=== PATIENT | female | born 1990 | race Caucasian/White ===

== ENCOUNTER 2016-11-19 18:40 | Emergency (ER) | payer OTHER ==
[~2016-11-19] VITALS: Ht 160 cm; Wt 43.7 kg
[~2016-11-19 18:40] MED LIST: ALBUAER2 INH; CALCTAB5 PO
[2016-11-19 18:44] VITALS: TEMP 36.7; Ht 160 cm; Wt 43.7 kg
[2016-11-19] MEDS ORDERED: SODIUM CHLORIDE 0.9% 1000ML 1,000 ML IV STA (20:51)
[2016-11-19] MEDS ORDERED: ONDANSETRON INJ 2 MG/ML 2 ML VIAL IV STA (20:51)
--- NOTE | 2016-11-19 20:59 | EMERGENCY ROOM VISIT NOTE ---
History Report prepared by Thanh: Renate Shelton Under the Supervision of: Dr. Gypsy Marrufo M.D. First contact with patient: 20:40 Chief Complaint: ABDOMINAL PAIN Stated Complaint: SEVERE NAUSEA, PAIN IN ABDOMEN Nursing Triage Summary: Severe nausea and abd pain that started new years day. History of Present Illness The patient is a 26 year old female who presents to the Emergency Room with complaints of constant abdominal pain for the past 3 days. She rates her pain as a 5/10 in severity. She has been experiencing nausea and vomiting. She states that she is unable to eat or drink due to her symptoms. The patient reports feeling lightheaded, like she was going to pass out. She denies diarrhea , chance of , and any sick contacts. Source of History: patient Onset: 3 days ago Position: abdomen Symptom Intensity: 5/10 Timing: constant Modifying Factors (Worsening): eating, drinking Associated Symptoms: + nausea, + vomiting, No diarrhea Review of Systems See HPI for pertinent positives & negatives. A total of 10 systems reviewed and were otherwise negative. Past Medical & Surgical Medical Problems: (1) Abdominal pain (2) Abdominal pain (3) Abdominal pain (4) Abdominal pain (5) Abdominal pain (6) Abdominal pain (7) Anemia (8) Asthma (9) Asthma exacerbation (10) Asthma exacerbation (11) Asthma exacerbation (12) Asthma exacerbation (13) Bronchitis (14) Bronchitis (15) Constipation (16) Constipation (17) Dehydration (18) Dental caries (19) Dyspnea (20) Dyspnea (21) Ear foreign body (22) Fever (23) Gastroenteritis (24) Gastroenteritis (25) Jaw pain (26) Left ear impacted cerumen (27) Leg pain, left (28) Medication reaction (29) Migraine (30) Migraine (31) Miscarriage (32) Nausea (33) Normal labor (34) Ovarian cyst (35) Pelvic pain (36) Pelvic pain (37) Pelvic pain in female (38) Pelvic pain in female (39) PID (pelvic inflammatory disease) (40) PID (pelvic inflammatory disease) (41) Removal of ovarian cyst (42) Right lower quadrant pain (43) Third trimester (44) URI (upper respiratory infection) (45) Vaginal delivery Surgical Problems: (1) History of laparoscopic appendectomy (2) Hx of appendectomy (3) Tonsillectomy Family History Diabetes mellitus Kidney stones Social History Smoking Status: Never Smoker Alcohol Use: occasionally Drug Use: none Marital Status: Housing Status: lives with family Occupation Status: employed Current/Historical Medications Scheduled Calcium (Caltrate), 600 MG PO DAILY Ferrous Sulfate (Iron), 325 MG PO DAILY Fish Oil (Calvin-3), 1 CAP PO DAILY Multivitamin (Multivitamin), 1 TAB PO DAILY Scheduled PRN Albuterol (Ventolin Hfa), 2 PUFFS INH Q4H PRN for SOB/Wheezing Allergies Coded Allergies: Harmon (Verified Allergy, Unknown, SWELLING, 11/19/16) POLLEN (Verified Allergy, Unknown, UNKNOWN, 11/19/16) Physical Exam Vital Signs Date Time Temp Pulse Resp B/P Pulse Ox O2 Delivery O2 Flow Rate FiO2 11/19/16 22:30 76 18 104/62 96 Room Air 11/19/16 21:32 68 11/19/16 20:37 65 18 104/62 100 Room Air 11/19/16 20:37 70 16 110/71 99 Room Air 11/19/16 18:44 36.7 79 17 97/65 99 Room Air Physical Exam Vital signs reviewed. General: Well-appearing 26 year old female, in no significant distress. HEENT: No scleral icterus, PERRLA, neck supple. Atraumatic. Cardiovascular: Regular rate and rhythm, no extra sounds. Pulmonary: Clear to auscultation bilaterally, normal work of breathing. Abdomen: Soft, mild diffuse abdominal tenderness, nondistended, positive bowel sounds. Musculoskeletal: Atraumatic, no peripheral edema. Neurologic: Patient awake alert and oriented x 3, full strength in all 4 extremities. Cranial nerves 2 through 12 grossly intact. Skin: Warm, dry, no rash Medical Decision & Procedures Laboratory Results 11/19/16 21:05 Red Blood Count 3.84, Mean Corpuscular Volume 81.8, Mean Corpuscular Hemoglobin 27.6, Mean Corpuscular Hemoglobin Concent 33.8, Mean Platelet Volume 10.8, Neutrophils (%) (Auto) 53.8, Lymphocytes (%) (Auto) 35.4, Monocytes (%) (Auto) 7.3, Eosinophils (%) (Auto) 2.6, Basophils (%) (Auto) 0.6, Neutrophils # (Auto) 1.84, Lymphocytes # (Auto) 1.21, Monocytes # (Auto) 0.25, Eosinophils # (Auto) 0.09, Basophils # (Auto) 0.02 11/19/16 21:05 Test 11/19/16 21:05 White Blood Count 3.42 K/uL (4.8-10.8) Red Blood Count 3.84 M/uL (4.2-5.4) Hemoglobin 10.6 g/dL (12.0-16.0) Hematocrit 31.4 % (37-47) Mean Corpuscular Volume 81.8 fL (80-100) Mean Corpuscular Hemoglobin 27.6 pg (25-34) Mean Corpuscular Hemoglobin Concent 33.8 g/dl (32-36) Platelet Count 138 K/uL (130-400) Mean Platelet Volume 10.8 fL (7.4-10.4) Neutrophils (%) (Auto) 53.8 % Lymphocytes (%) (Auto) 35.4 % Monocytes (%) (Auto) 7.3 % Eosinophils (%) (Auto) 2.6 % Basophils (%) (Auto) 0.6 % Neutrophils # (Auto) 1.84 K/uL (1.4-6.5) Lymphocytes # (Auto) 1.21 K/uL (1.2-3.4) Monocytes # (Auto) 0.25 K/uL (0.11-0.59) Eosinophils # (Auto) 0.09 K/uL (0-0.5) Basophils # (Auto) 0.02 K/uL (0-0.2) RDW Standard Deviation 37.0 fL (36.4-46.3) RDW Coefficient of Variation 12.5 % (11.5-14.5) Immature Granulocyte % (Auto) 0.3 % Immature Granulocyte # (Auto) 0.01 K/uL (0.00-0.02) Urine Color DK YELLOW Urine Appearance CLEAR (CLEAR) Urine pH 5.0 (4.5-7.5) Urine Specific [facility] [place] 1.035 (1.000-1.030) Urine Protein NEG (NEG) Urine Glucose (UA) NEG (NEG) Urine Ketones 1+ (NEG) Urine Occult Blood 1+ (NEG) Urine Nitrite NEG (NEG) Urine Bilirubin NEG (NEG) Urine Urobilinogen NEG (NEG) Urine Leukocyte Esterase NEG (NEG) Urine WBC (Auto) 1-5 /hpf (0-5) Urine RBC (Auto) 10-30 /hpf (0-4) Urine Hyaline Casts (Auto) 1-5 /lpf (0-5) Urine Epithelial Cells (Auto) 10-20 /lpf (0-5) Urine Bacteria (Auto) NEG (NEG) Anion Gap 9.0 mmol/L (3-11) Est Creatinine Clear Calc Drug Dose 106.0 ml/min Estimated GFR () 149.0 Estimated GFR (Non- 128.5 BUN/Creatinine Ratio 26.7 (10-20) Calcium Level 8.6 mg/dl (8.5-10.1) Magnesium Level 1.8 mg/dl (1.8-2.4) Total Bilirubin 0.2 mg/dl (0.2-1) Direct Bilirubin < 0.1 mg/dl (0-0.2) Aspartate Amino Transf (AST/SGOT) 19 U/L (15-37) Alanine Aminotransferase (ALT/SGPT) 15 U/L (12-78) Alkaline Phosphatase 37 U/L (45-117) Total Protein 6.2 gm/dl (6.4-8.2) Albumin 3.0 gm/dl (3.4-5.0) Human Chorionic Gonadotropin, Qual NEG (NEG) Laboratory results per my review. Medications Administered Medications (Trade) Dose Ordered Sig/Smith Route Start Time Stop Time Status Last Admin Dose Admin Ondansetron HCl 4 mg 4 mg NOW STAT IV 11/19/16 20:51 11/19/16 20:52 DC 11/19/16 21:22 4 MG Sodium Chloride (Nss 1000ml) 1,000 ml @ 999 mls/hr Q1H1M STAT IV 11/19/16 20:51 11/19/16 21:51 DC 11/19/16 21:21 999 MLS/HR Ondansetron HCl (ZOFRAN ODT 4MG Home Pack) 1 homepack UD ONCE PO 11/19/16 22:15 11/19/16 22:16 DC 11/19/16 22:15 1 HOMEPACK ED Course 2047: Past medical records reviewed. The patient was evaluated in room C9. A complete history and physical examination was performed. 2050: NSS 1000 ml @ 999 mls/hr IV, Zofran 4 mg IV 2214: Zofran 4 mg PO 1 homepack 2230: I reassessed the patient at this time. She is feeling better and resting comfortably. I discussed the results and treatment plan with the patient. I answered all pertaining questions that she had. She expressed understanding and verbalized agreement. The patient will be discharged home. Medical Decision Differential diagnosis: Etiologies such as appendicitis, diverticulitis, PUD, biliary pathology, UTI, pancreatitis, obstruction, mesenteric ischemia, aortic pathology, infections, inflammatory bowel disease, renal colic, as well as others were entertained. This pt was evaluated and appeared to be in no distress. IV access was obtained and lab work was drawn. PT was placed on the personnel monitor. VSS. She was hydrated with NSS, given zofran 4 mg IV. She had improvement in symptoms. UA is significant for microscopic blood c/w menses. Lab work is reassuring and pt was asked to f/u with PCP this week. She will return to the ED for worsening of symptoms or any medical concerns. Impression Primary Impression: Nausea Additional Impression: Diffuse abdominal pain Scribe Attestation The scribe's documentation has been prepared under my direction and personally reviewed by me in its entirety. I confirm that the note above accurately reflects all work, treatment, procedures, and medical decision making performed by me. Departure Information Dispostion Home / Self-Care Referrals Anant Valiente III, M.D. (PCP) Forms HOME CARE DOCUMENTATION FORM, IMPORTANT VISIT INFORMATION, My [facility] Additional Instructions Diagnosis: Nausea, abdominal pain Zofran 4 mg ODT every 6 hours as needed for nausea. Drink plenty of clear fluids. Advance her diet slowly as tolerated, bananas, rice, applesauce and toast. Follow-up with your physician this week for reevaluation. Return to the ER for worsening of symptoms or any medical concerns.
[2016-11-19 21:27] LABS: BASO % 0.6 %; BASO ABS # 0.02 K/uL (0-0.2); COMPLETE YES; EOS % 2.6 %; HEMATOCRIT 31.4 % (37-47); IG% 0.3 %; LYMPH % 35.4 %; LYMPH ABS # 1.21 K/uL (1.2-3.4); MEAN CELL VOLUME 81.8 fL (80-100); MEAN CORPUSCULAR HEMOGLOBIN 27.6 pg (25-34); MEAN CORPUSCULAR HGB CONC 33.8 g/dl (32-36); MEAN PLATELET VOLUME 10.8 fL (7.4-10.4); MONO % 7.3 %; NEUT % 53.8 %; PLATELET COUNT 138 K/uL (130-400); RED BLOOD COUNT 3.84 M/uL (4.2-5.4); WHITE BLOOD COUNT 3.42 K/uL (4.8-10.8)
[2016-11-19 21:41] LABS: URINE APPEARANCE CLEAR (CLEAR); URINE BILIRUBIN NEG (NEG); URINE COLOR DK YELLOW; URINE NITRITE NEG (NEG); URINE SPECIFIC GRAVITY 1.035 (1.000-1.030); UROBILINOGEN NEG (NEG); ZZUR CULT IF INDIC CLEAN CATCH NO
[2016-11-19 21:43] LABS: MANUAL MICROSCOPIC REQUIRED? NO; REVIEW REQ? NO
[2016-11-19 21:50] LABS: ALT/SGPT 15 U/L (12-78); BLOOD UREA NITROGEN 15 mg/dl (7-18); BUN/CREATININE RATIO 26.7 (10-20); CALCIUM 8.6 mg/dl (8.5-10.1); CARBON DIOXIDE 27 mmol/L (21-32); CHLORIDE 107 mmol/L (98-107); CREATININE 0.55 mg/dl (0.60-1.20); GLUCOSE 83 mg/dl (70-99); MAGNESIUM 1.8 mg/dl (1.8-2.4); POTASSIUM 3.4 mmol/L (3.5-5.1); SODIUM 143 mmol/L (136-145)
[2016-11-19 21:53] LABS: ALKALINE PHOSPHATASE 37 U/L (45-117); AST/SGOT 19 U/L (15-37)
[2016-11-19 21:56] LABS: PREG INTERNAL NEGATIVE QC NEG CLEAR BACKGROUND; PREG INTERNAL POSITIVE QC POS CONTROL LINE
[2016-11-19] MEDS ORDERED: ONDANSETRON HOME PACK 4MG OD TAB PO ONE (22:15)
[2016-11-19 22:30] VITALS: BP 104/62; PULSE 76; O2SAT 96
[2017-06-01] MEDS ORDERED: FERR1TAB23 PO (01:38)
[2017-06-01] MEDS ORDERED: MULT-506 PO (01:39)
[2017-06-01] MEDS ORDERED: VNTHFA/IN INH (13:58)
[2017-06-01] MEDS ORDERED: OMEG10007 PO (15:33)
== END 2016-11-19 22:55 | disposition home or self-care (01) ==
LOC: C.EDB 18:42 → C.EDC 22:55
DX: R10.9 Unspecified abdominal pain (principal); R11.0 Nausea; J45.909 Unspecified asthma, uncomplicated; Z86.19 Personal history of other infectious and parasitic diseases; N83.209 Unspecified ovarian cyst, unspecified side; D64.9 Anemia, unspecified; Z98.890 Other specified postprocedural states; Z79.899 Other long term (current) drug therapy; Z91.018 Allergy to other foods; Z83.3 Family history of diabetes mellitus; Z84.1 Family history of disorders of kidney and ureter

== ENCOUNTER 2016-11-26 03:03 | Emergency (ER) | payer OTHER ==
[~2016-11-26] VITALS: Ht 160 cm; Wt 44.5 kg
[2016-11-26 03:09] VITALS: TEMP 36.6; Ht 160 cm; Wt 44.5 kg
[2016-11-26] MEDS ORDERED: KETOROLAC TROMETHAMINE 30 MG/ML VIAL IV STA (03:26)
[2016-11-26] MEDS ORDERED: SODIUM CHLORIDE 0.9% 500ML 500 ML IV STA (03:26)
[2016-11-26] MEDS ORDERED: ONDANSETRON INJ 2 MG/ML 2 ML VIAL IV STA (03:26)
[2016-11-26 03:50] LABS: BASO % 0.5 %; BASO ABS # 0.03 K/uL (0-0.2); COMPLETE YES; EOS % 5.1 %; HEMATOCRIT 34.6 % (37-47); IG% 0.5 %; LYMPH % 43.8 %; LYMPH ABS # 2.91 K/uL (1.2-3.4); MEAN CELL VOLUME 82.4 fL (80-100); MEAN CORPUSCULAR HEMOGLOBIN 27.6 pg (25-34); MEAN CORPUSCULAR HGB CONC 33.5 g/dl (32-36); MEAN PLATELET VOLUME 10.7 fL (7.4-10.4); MONO % 5.1 %; PLATELET COUNT 223 K/uL (130-400); WHITE BLOOD COUNT 6.64 K/uL (4.8-10.8)
[2016-11-26 03:58] LABS: URINE APPEARANCE CLEAR (CLEAR); URINE BILIRUBIN NEG (NEG); URINE COLOR YELLOW; URINE NITRITE NEG (NEG); URINE PH 7.5 (4.5-7.5); URINE SPECIFIC GRAVITY 1.009 (1.000-1.030); UROBILINOGEN NEG (NEG); ZZUR CULT IF INDIC CLEAN CATCH NO
[2016-11-26 03:59] LABS: MANUAL MICROSCOPIC REQUIRED? NO; REVIEW REQ? NO
[2016-11-26 04:07] LABS: BUN/CREATININE RATIO 18.3 (10-20); CALCIUM 9.1 mg/dl (8.5-10.1); CREATININE 0.66 mg/dl (0.60-1.20); POTASSIUM 3.7 mmol/L (3.5-5.1)
[2016-11-26 04:13] LABS: PREG INTERNAL NEGATIVE QC NEG CLEAR BACKGROUND; PREG INTERNAL POSITIVE QC POS CONTROL LINE
--- NOTE | 2016-11-26 05:28 | EMERGENCY ROOM VISIT NOTE ---
History First contact with patient: 03:16 Chief Complaint: NAUSEA Stated Complaint: FAINT-LIKE,TIRED,WEAK,DROWSY,DRY LIPS,ABD PAIN,HERNÁNDEZ History of Present Illness The patient is a 26 year old female who presents to the Emergency Room with complaints of nausea feeling lightheaded and lower abdominal cramping for the past several hours. Patient is concerned she has her ovarian cyst again. She describes the pain as cramping, ranging in severity 4 out of 10. Nothing makes it better or worse. She just finished her menstrual cycle. Patient denies chest pain, dyspnea, fever, chills, vomiting, diarrhea, urinary symptoms. No syncope. Review of Systems See HPI for pertinent positives & negatives. A total of 10 systems reviewed and were otherwise negative. Past Medical/Surgical History Medical Problems: (1) Abdominal pain (2) Abdominal pain (3) Abdominal pain (4) Abdominal pain (5) Abdominal pain (6) Abdominal pain (7) Anemia (8) Asthma (9) Asthma exacerbation (10) Asthma exacerbation (11) Asthma exacerbation (12) Asthma exacerbation (13) Bronchitis (14) Bronchitis (15) Constipation (16) Constipation (17) Dehydration (18) Dental caries (19) Dyspnea (20) Dyspnea (21) Ear foreign body (22) Fever (23) Gastroenteritis (24) Gastroenteritis (25) Jaw pain (26) Left ear impacted cerumen (27) Leg pain, left (28) Medication reaction (29) Migraine (30) Migraine (31) Miscarriage (32) Nausea (33) Normal labor (34) Ovarian cyst (35) Pelvic pain (36) Pelvic pain (37) Pelvic pain in female (38) Pelvic pain in female (39) PID (pelvic inflammatory disease) (40) PID (pelvic inflammatory disease) (41) Removal of ovarian cyst (42) Right lower quadrant pain (43) Third trimester (44) URI (upper respiratory infection) (45) Vaginal delivery Surgical Problems: (1) History of laparoscopic appendectomy (2) Hx of appendectomy (3) Tonsillectomy Family History Diabetes mellitus Kidney stones Social History Smoking Status: Never Smoker Alcohol Use: occasionally Drug Use: none Marital Status: Housing Status: lives with family Occupation Status: employed Current/Historical Medications Scheduled Calcium (Caltrate), 600 MG PO DAILY Ferrous Sulfate (Iron), 325 MG PO DAILY Fish Oil (Leola-3), 1 CAP PO DAILY Multivitamin (Multivitamin), 1 TAB PO DAILY Scheduled PRN Albuterol (Ventolin Hfa), 2 PUFFS INH Q4H PRN for SOB/Wheezing Allergies Coded Allergies: Byron (Verified Allergy, Unknown, SWELLING, 11/26/16) POLLEN (Verified Allergy, Unknown, UNKNOWN, 11/26/16) Physical Exam Vital Signs Date Time Temp Pulse Resp B/P Pulse Ox O2 Delivery O2 Flow Rate FiO2 11/26/16 04:57 72 20 96/60 100 Room Air 11/26/16 03:09 36.6 72 20 101/74 100 Physical Exam VITALS: Vitals are noted on the nurse's note and reviewed by myself. Vital signs stable. GENERAL: White female ambulating without difficulties, in no acute distress, nondiaphoretic, well-developed well-nourished. SKIN: The skin was without rashes, erythema, edema, or bruising. There is no tenting of the skin. Capillary reflex less than 2 seconds. HEAD: Normocephalic atraumatic. EARS: External auditory canals clear, tympanic membranes pearly kowalski without erythema or effusion bilaterally. EYES: Pupils equal round and reactive to light and accommodation. Conjunctivae without injection, sclerae without icterus. Extraocular movements intact. NOSE: Patent, turbinates without inflammation or discharge. MOUTH: Mucous membranes moist. . Pharynx without erythema or exudate. Uvula midline. Airway patent. Tongue does not deviate. NECK: Supple without nuchal rigidity. No lymphadenopathy. No thyromegaly. Cervical spine is nontender. No JVD. HEART: Regular rate and rhythm without murmurs gallops or rubs. LUNGS: Clear to auscultation bilaterally without wheezes, rales or rhonchi. No dullness to percussion. No retractions or accessory muscle use. ABDOMEN: Positive bowel sounds x 4. Normal tympanic percussion. Soft, nontender, without masses or organomegaly. Jimenez sign negative. No guarding or rebound tenderness. No CVA tenderness MUSCULOSKELETAL: No muscle atrophy, erythema, or edema noted. NEURO: Patient was alert and oriented to person place and time. Normal sensation to light and sharp touch. No focal neurological deficits. Medical Decision & Procedures Laboratory Results 11/26/16 03:35 Red Blood Count 4.20, Mean Corpuscular Volume 82.4, Mean Corpuscular Hemoglobin 27.6, Mean Corpuscular Hemoglobin Concent 33.5, Mean Platelet Volume 10.7, Neutrophils (%) (Auto) 45.0, Lymphocytes (%) (Auto) 43.8, Monocytes (%) (Auto) 5.1, Eosinophils (%) (Auto) 5.1, Basophils (%) (Auto) 0.5, Neutrophils # (Auto) 2.99, Lymphocytes # (Auto) 2.91, Monocytes # (Auto) 0.34, Eosinophils # (Auto) 0.34, Basophils # (Auto) 0.03 11/26/16 03:35 Test 11/26/16 03:30 11/26/16 03:35 Urine Color YELLOW Urine Appearance CLEAR (CLEAR) Urine pH 7.5 (4.5-7.5) Urine Specific [place] 1.009 (1.000-1.030) Urine Protein NEG (NEG) Urine Glucose (UA) NEG (NEG) Urine Ketones NEG (NEG) Urine Occult Blood NEG (NEG) Urine Nitrite NEG (NEG) Urine Bilirubin NEG (NEG) Urine Urobilinogen NEG (NEG) Urine Leukocyte Esterase NEG (NEG) White Blood Count 6.64 K/uL (4.8-10.8) Red Blood Count 4.20 M/uL (4.2-5.4) Hemoglobin 11.6 g/dL (12.0-16.0) Hematocrit 34.6 % (37-47) Mean Corpuscular Volume 82.4 fL (80-100) Mean Corpuscular Hemoglobin 27.6 pg (25-34) Mean Corpuscular Hemoglobin Concent 33.5 g/dl (32-36) Platelet Count 223 K/uL (130-400) Mean Platelet Volume 10.7 fL (7.4-10.4) Neutrophils (%) (Auto) 45.0 % Lymphocytes (%) (Auto) 43.8 % Monocytes (%) (Auto) 5.1 % Eosinophils (%) (Auto) 5.1 % Basophils (%) (Auto) 0.5 % Neutrophils # (Auto) 2.99 K/uL (1.4-6.5) Lymphocytes # (Auto) 2.91 K/uL (1.2-3.4) Monocytes # (Auto) 0.34 K/uL (0.11-0.59) Eosinophils # (Auto) 0.34 K/uL (0-0.5) Basophils # (Auto) 0.03 K/uL (0-0.2) RDW Standard Deviation 38.1 fL (36.4-46.3) RDW Coefficient of Variation 12.8 % (11.5-14.5) Immature Granulocyte % (Auto) 0.5 % Immature Granulocyte # (Auto) 0.03 K/uL (0.00-0.02) Anion Gap 8.0 mmol/L (3-11) Est Creatinine Clear Calc Drug Dose 89.9 ml/min Estimated GFR () 140.3 Estimated GFR (Non- 121.1 BUN/Creatinine Ratio 18.3 (10-20) Calcium Level 9.1 mg/dl (8.5-10.1) Human Chorionic Gonadotropin, Qual NEG (NEG) Medications Administered Medications (Trade) Dose Ordered Sig/Smith Route Start Time Stop Time Status Last Admin Dose Admin Ondansetron HCl 4 mg 4 mg NOW STAT IV 11/26/16 03:26 11/26/16 03:29 DC 11/26/16 03:37 4 MG Sodium Chloride (Nss 500ml) 500 ml @ 999 mls/hr Q31M STAT IV 11/26/16 03:26 11/26/16 03:56 DC 11/26/16 03:37 999 MLS/HR ED Course Prior records/ancillary studies reviewed. Triage Nursing notes reviewed. The patient's history was concerning for lightheaded with pelvic cramping Differential diagnosis: Etiologies such as ovarian cyst, electrolyte abnormality, dehydration, anemia, intra-abdominal, infections as well as others were entertained. Physical examination: As above. ER treatment provided: IV hydration with normal saline, 500 ml. zofran, toradol On reassessment the patient felt well. Diagnostics interpretation by me: The labs revealed a normal chemistry panel. neg hcg stable mild anemia US PELVIC/ENDOVAG: Compared to pelvic ultrasound 09/30/2016 1.9 centimeter left ovarian cyst/dominant follicle. The ovaries are otherwise within normal limits without evidence of torsion bilaterally. Uterus is unremarkable. No free fluid. Radiologist: Eva Macias M.D. It appears the patient had nausea with an ovarian cyst. She was advised to follow-up with her OB in 6 weeks for repeat ultrasound. By the evaluation outlined above emergent etiologies such as infection, hypoglycemia, electrolyte abnormalities, cardiac sources, intracerebral event, toxicologic, neurologic,as well as others were deemed relatively unlikely. Patient is neurovascularly and neurologically intact. She is well-appearing. She is advised to rest, stay well-hydrated and to follow-up family care in a few days or here in the ER sooner for chest pain, difficulty breathing, syncope, abdominal pain, worsening signs or symptoms or as needed. Patient did not have acute abdomen on exam. She was not . Patient is in a monogamous relationship and does not feel at risk for STIs. I felt this was reasonable. She is well-known to this ER. The pt informed about the findings as listed above. All questions were answered and pleased with the treatment. Return instructions were outlined and the patient was discharged in stable condition. Outpatient prescription management: zofran Referral: The patient was referred back to their primary care physician for follow-up in 2 to 3 days for a recheck of the current condition. Medical Decision As above Impression Primary Impression: Ovarian cyst Additional Impression: Nausea Departure Information Dispostion Home / Self-Care Condition GOOD Referrals Anant Valiente III, M.D. (PCP) Patient Instructions [facility], [facility], [facility] Additional Instructions Repeat pelvic ultrasound in 6 weeks for resolution of cyst. Zofran(odansetron) tablets 4mg: Take one and allow it to dissolve in your mouth every four to six hours as needed for nausea or vomiting. Acetaminophen(Tylenol) may be used for fever or pain. Use 500mg every six hours as needed. Avoid using more than 2000mg in a 24 hour period. Rest and drink plenty of fluids as tolerated. Slow sips of water or sports drinks are recommended instead of large amounts all at once. Continue current medications. Once your stomach is settled start with a clear liquid diet (jello, soup broth, etc.) and then advance as tolerated. You should avoid full, heavy meals for about 24 hrs from the time your symptoms resolved. Return to the ER for persistent vomiting, fevers, abdominal pain, chest pains, difficulty breathing, black or bloody stools, worsening of your condition, or as needed. Follow up with your primary physician in 2-3 days for a recheck of your current condition.
[2016-11-26] MEDS ORDERED: ONDANSETRON HOME PACK 4MG OD TAB PO ONE (05:30)
[2016-11-26 05:45] VITALS: BP 101/60; PULSE 79; O2SAT 99
--- NOTE | 2016-11-26 07:13 | DIAGNOSTIC IMAGING REPORT ---
EXAMINATION: PELVIC ULTRASOUND (transabdominal and endovaginal scanning) CLINICAL HISTORY: Pelvic pain COMPARISON STUDY: 09/30/2016 FINDINGS: The uterus measured 7.8 x 3.2 x 4.6 cm. The endometrial stripe measured 9 mm. The right ovary measured 17 x 13 x 23 mm. The left ovary measured 32 x 18 x 24 mm. There is a 19 mm dominant left ovarian follicle.. There is no ultrasonographic evidence of ovarian torsion. It should be noted that ovarian torsion can be present with normal Doppler ultrasonographic findings. There was no evidence of pathologic free pelvic fluid. IMPRESSION: 19 mm dominant left ovarian follicle. Normal pelvic ultrasound. Electronically signed by: Jose Keyes M.D. 11/26/2016 7:11 AM Dictated Date/Time: 11/26/2016 7:10 AM
[2017-06-01] MEDS ORDERED: FERR1TAB23 PO (01:38)
[2017-06-01] MEDS ORDERED: MULT-506 PO (01:39)
[2017-06-01] MEDS ORDERED: VNTHFA/IN INH (13:58)
[2017-06-01] MEDS ORDERED: OMEG10007 PO (15:33)
== END 2016-11-26 05:57 | disposition home or self-care (01) ==
LOC: C.EDB 03:04 → C.EDA 05:57
DX: N83.202 Unspecified ovarian cyst, left side (principal); R11.0 Nausea; J45.909 Unspecified asthma, uncomplicated; Z86.19 Personal history of other infectious and parasitic diseases; Z87.440 Personal history of urinary (tract) infections; Z98.890 Other specified postprocedural states; Z79.899 Other long term (current) drug therapy; Z91.018 Allergy to other foods; Z91.09 Other allergy status, other than to drugs and biological substances; Z83.3 Family history of diabetes mellitus; Z84.1 Family history of disorders of kidney and ureter

== ENCOUNTER 2016-12-07 17:38 | Emergency (ER) | payer OTHER ==
[~2016-12-07] VITALS: Ht 160 cm; Wt 44.8 kg
[2016-12-07 17:43] VITALS: TEMP 36.8; Ht 160 cm; Wt 44.8 kg
--- NOTE | 2016-12-07 20:43 | DIAGNOSTIC IMAGING REPORT ---
RIGHT LOWER EXTREMITY VENOUS DOPPLER CLINICAL HISTORY: Right leg pain and numbness. COMPARISON STUDY: No previous studies for comparison. TECHNIQUE: Sonography of the deep venous system of the right lower extremity was performed. Compression and augmentation were evaluated. FINDINGS: The right common femoral, superficial femoral and popliteal veins were compressible. Augmentation was normal. Flow was shown within the deep calf vessels. IMPRESSION: No evidence of deep venous thrombus within the right lower extremity. Electronically signed by: Cholo Taylor M.D. 12/07/2016 8:41 PM Dictated Date/Time: 12/07/2016 8:40 PM
--- NOTE | 2016-12-07 20:55 | EMERGENCY ROOM VISIT NOTE ---
ED Visit Note First contact with patient: 17:49 CHIEF COMPLAINT: Burning warmth in right leg 4 days HISTORY OF PRESENT ILLNESS: Patient is a 26-year-old white female who presents emergency department for evaluation of a burning, warm feeling intermittently in the right leg over the last 4 days. Her symptoms have not been getting worse , but having fairly persistent. She describes it as feeling like the leg is getting "hot" but denies that it is actually painful. It is primarily in the right calf, but she can feel it in the right thigh as well. She does not have any symptoms in the left leg. She appeared occasionally notices symptoms in the right upper extremity as well. She was reading online and was concerned that she could have a DVT, although she denies any risk factors including smoking, oral contraceptive use or recent travel. The leg is not swollen. She notes some intermittent numbness. She denies any back pain. No trauma or injury. REVIEW OF SYSTEMS:Review of systems as per HPI. All other systems reviewed were negative. 10 systems reviewed. PMH: Electronic medical records are reviewed and summarized as above/below. See Problem List. SOCIAL HISTORY: Patient lives at home with her and children. Unemployed. Nonsmoker. PHYSICAL EXAM: Vital Signs: Reviewed Nurse's notes. CONSTITUTIONAL: Patient is a well-appearing 26-year-old white female who is awake and alert and in no acute distress. EYES: Pupils equal, round, reactive to light and accommodation. EOMs intact without nystagmus. Sclera are anicteric. ENT: Tympanic membranes intact, with normal landmarks. External canals are clear. Oral and nasopharynx are clear. Mucous membranes are moist, no lesions , tongue and gums appear normal. NECK: No bruits auscultated. Supple without lymphadenopathy. No thyromegaly. No meningeal signs. Full active range of motion without discomfort. CARDIOVASCULAR: Regular rate and rhythm, with normal S1 and S2, no murmur or gallop or rub is heard. No carotid bruits auscultated. No JVD. Peripheral pulses easily palpable. RESPIRATORY: Breath sounds equal and clear to auscultation without wheezes, rales, or rhonchi heard. Full and equal chest expansion without accessory muscle use or retractions. INTEGUMENTARY: No lesions or rash, normal skin turgor. LYMPH: No lymphadenopathy. NEUROLOGICAL: Alert oriented, coherent. PERRL, EOMs full, gait normal. EXTREMITIES: Examination of the right lower extremity does not know any erythema, cyanosis, edema, joint tenderness or effusion. There is no increased warmth or induration. Pulses equal bilaterally. The calf is soft and nontender. Skin is intact without any rashes or lesions. No cords can be palpated and Dee's sign is negative. Distal pulses are equal bilaterally. Capillary refills less than 2 seconds. Sensation to light touch is intact. No inguinal lymphadenopathy is appreciated. There is no lymphangitic streaking. EMERGENCY DEPARTMENT COURSE: The patient was seen and examined as above. She is well-known to the emergency department for frequent visits. Review of her old records do show that she was here for similar symptoms in the left arm a few months ago. She presents complaining of vague paresthesias in the right lower extremity over the last 4 days. She is concerned she could have a DVT. She is felt to be low risk. Nonetheless, ultrasound of the right lower extremity was obtained. She also reported some intermittent symptoms in the right arm as well. Her physical exam findings are not consistent with acute cord compression or cauda equina syndrome. She has a nonspecific paresthesia. She has a history of an iron deficiency anemia, otherwise no other significant electrolyte or vitamin deficiency is known. She was encouraged to follow-up with her primary care provider for further care and management. If her symptoms persist she may require further workup. Differential diagnoses include anemia, vitamin deficiency, DVT, superficial thrombophlebitis, cellulitis, lumbar radiculopathy, acute arterial occlusion, among others. RIGHT LOWER EXTREMITY VENOUS DOPPLER CLINICAL HISTORY: Right leg pain and numbness. COMPARISON STUDY: No previous studies for comparison. TECHNIQUE: Sonography of the deep venous system of the right lower extremity was performed. Compression and augmentation were evaluated. FINDINGS: The right common femoral, superficial femoral and popliteal veins were compressible. Augmentation was normal. Flow was shown within the deep calf vessels. IMPRESSION: No evidence of deep venous thrombus within the right lower extremity. Problem List Medical Problems: (1) Abdominal pain Status: Resolved (2) Abdominal pain Status: Resolved (3) Abdominal pain Status: Resolved (4) Abdominal pain Status: Resolved (5) Abdominal pain Status: Resolved (6) Abdominal pain Status: Resolved (7) Anemia Status: Chronic (8) Asthma Status: Chronic (9) Asthma exacerbation Status: Resolved (10) Asthma exacerbation Status: Resolved (11) Asthma exacerbation Status: Resolved (12) Asthma exacerbation Status: Resolved (13) Bronchitis Status: Resolved (14) Bronchitis Status: Resolved (15) Constipation Status: Resolved (16) Constipation Status: Resolved (17) Dehydration Status: Resolved (18) Dental caries Status: Resolved (19) Dyspnea Status: Resolved (20) Dyspnea Status: Resolved (21) Ear foreign body Status: Resolved (22) Fever Status: Resolved (23) Gastroenteritis Status: Resolved (24) Gastroenteritis Status: Resolved (25) Jaw pain Status: Resolved (26) Left ear impacted cerumen Status: Resolved (27) Leg pain, left Status: Resolved (28) Medication reaction Status: Resolved (29) Migraine Status: Chronic (30) Migraine Status: Resolved (31) Miscarriage Status: Resolved (32) Nausea Status: Resolved (33) Normal labor Status: Resolved (34) Ovarian cyst Status: Resolved (35) Pelvic pain Status: Resolved (36) Pelvic pain Status: Resolved (37) Pelvic pain in female Status: Resolved (38) Pelvic pain in female Status: Resolved (39) PID (pelvic inflammatory disease) Status: Resolved (40) PID (pelvic inflammatory disease) Status: Resolved (41) Removal of ovarian cyst Status: Resolved (42) Right lower quadrant pain Status: Resolved (43) Third trimester Status: Resolved (44) URI (upper respiratory infection) Status: Resolved (45) Vaginal delivery Status: Resolved Surgical Problems: (1) History of laparoscopic appendectomy Status: Resolved (2) Hx of appendectomy Status: Resolved (3) Tonsillectomy Status: Resolved Current/Historical Medications Scheduled Calcium (Caltrate), 600 MG PO DAILY Ferrous Sulfate (Iron), 325 MG PO DAILY Fish Oil ([place]-3), 1 CAP PO DAILY Multivitamin (Multivitamin), 1 TAB PO DAILY Scheduled PRN Albuterol (Ventolin Hfa), 2 PUFFS INH Q4H PRN for SOB/Wheezing Allergies Coded Allergies: [place] (Verified Allergy, Unknown, SWELLING, 11/26/16) POLLEN (Verified Allergy, Unknown, UNKNOWN, 11/26/16) Vital Signs Date Time Temp Pulse Resp B/P Pulse Ox O2 Delivery O2 Flow Rate FiO2 12/07/16 19:59 80 16 127/76 96 Room Air 12/07/16 17:43 36.8 88 20 112/71 94 Room Air Departure Information Impression Primary Impression: Right leg paresthesias Referrals Anant Valiente III, M.D. (PCP) Patient Instructions My [facility] Additional Instructions Continue current medications. Follow up with your family physician for further care and management if symptoms persist.
[2016-12-07 21:00] VITALS: BP 111/71; PULSE 77; O2SAT 99
[2017-06-01] MEDS ORDERED: FERR1TAB23 PO (01:38)
[2017-06-01] MEDS ORDERED: MULT-506 PO (01:39)
[2017-06-01] MEDS ORDERED: VNTHFA/IN INH (13:58)
[2017-06-01] MEDS ORDERED: OMEG10007 PO (15:33)
== END 2016-12-07 21:10 | disposition home or self-care (01) ==
LOC: C.EDB 17:40 → C.EDD 21:10
DX: R20.9 Unspecified disturbances of skin sensation (principal)

== ENCOUNTER 2017-03-18 13:27 | Emergency (ER) | payer OTHER ==
[~2017-03-18] VITALS: Ht 157.5 cm; Wt 45.9 kg
[2017-03-18 13:29] VITALS: TEMP 36.6; Ht 157.5 cm; Wt 45.9 kg
[2017-03-18] MEDS ORDERED: KETOROLAC TROMETHAMINE 30 MG/ML VIAL IV STA (13:41)
[2017-03-18] MEDS ORDERED: ONDANSETRON INJ 2 MG/ML 2 ML VIAL IV STA (13:41)
[2017-03-18 14:00] LABS: URINE APPEARANCE CLEAR (CLEAR); URINE BILIRUBIN NEG (NEG); URINE COLOR YELLOW; URINE NITRITE NEG (NEG); URINE SPECIFIC GRAVITY 1.019 (1.000-1.030); UROBILINOGEN NEG (NEG); ZZUR CULT IF INDIC CLEAN CATCH NO
[2017-03-18 14:06] LABS: BASO % 0.4 %; BASO ABS # 0.02 K/uL (0-0.2); COMPLETE YES; EOS % 4.4 %; HEMATOCRIT 31.2 % (37-47); IG% 0.2 %; LYMPH % 36.5 %; LYMPH ABS # 1.92 K/uL (1.2-3.4); MEAN CORPUSCULAR HEMOGLOBIN 28.9 pg (25-34); MONO % 5.1 %; NEUT % 53.4 %; PLATELET COUNT 167 K/uL (130-400); RED BLOOD COUNT 3.67 M/uL (4.2-5.4); WHITE BLOOD COUNT 5.26 K/uL (4.8-10.8)
[2017-03-18 14:07] LABS: MANUAL MICROSCOPIC REQUIRED? NO; REVIEW REQ? NO
[2017-03-18 14:16] LABS: INR 1.1 (0.9-1.1); PROTHROMBIN TIME (PATIENT) 12.2 SECONDS (9.0-12.0)
[2017-03-18 14:31] LABS: ALT/SGPT 28 U/L (12-78); AST/SGOT 16 U/L (15-37); BLOOD UREA NITROGEN 14 mg/dl (7-18); BUN/CREATININE RATIO 21.8 (10-20); CALCIUM 9.1 mg/dl (8.5-10.1); CARBON DIOXIDE 30 mmol/L (21-32); CHLORIDE 108 mmol/L (98-107); CREATININE 0.62 mg/dl (0.60-1.20); GLUCOSE 92 mg/dl (70-99); POTASSIUM 3.9 mmol/L (3.5-5.1); SODIUM 142 mmol/L (136-145)
[2017-03-18 14:34] LABS: ALKALINE PHOSPHATASE 43 U/L (45-117)
--- NOTE | 2017-03-18 15:02 | DIAGNOSTIC IMAGING REPORT ---
ULTRASOUND OF THE PELVIS CLINICAL HISTORY: Menorrhagia. COMPARISON STUDY: Pelvic ultrasound dated 11/26/2016. TECHNIQUE: Real-time, grayscale, and color flow sonography of the pelvis is performed both transabdominally and endovaginally. Images are reviewed in the transverse and longitudinal planes. FINDINGS: Uterus: The uterus is normal in size and echotexture, measuring 7.5 x 3.8 x 4.5 cm. Endometrium: The endometrium is normal in appearance, and the endometrial stripe is normal in thickness measuring up to 0.4 cm. Ovaries: The ovaries are normal in size and morphology. The right ovary measures 1.8 x 1.0 x 2.8 cm and the left ovary measures 2.3 x 1.3 x 2.1 cm. There are small ovarian follicles. Normal Doppler waveforms are shown within both ovaries. Pelvis: There is trace free fluid in the cul-de-sac. No concerning adnexal lesion is seen. IMPRESSION: 1. No acute sonographic abnormality is identified in the pelvis. 2. Trace and likely physiologic free fluid is seen in the cul-de-sac. Electronically signed by: Elier Collins M.D. 03/18/2017 3:01 PM Dictated Date/Time: 03/18/2017 3:00 PM
--- NOTE | 2017-03-18 15:08 | EMERGENCY ROOM VISIT NOTE ---
History First contact with patient: 13:35 Chief Complaint: ED VAG BLEEDING Stated Complaint: STARTED PERIOD, CLOTS FALLING AND FEEL FAINT History of Present Illness The patient is a 26 year old female who presents to the Emergency Room with complaints of expelling large clots from her vagina. The patient states that she is unsure if it is time for her menses. The patient states yesterday when she woke up she had severe pelvic pain and started sweating and feeling dizzy. She then started passing large clots vaginally. She states she thought like she was going to pass out but she did not. She took some Motrin and laid down. She felt better later in the day but today while she was driving she started getting this same symptoms of sweating, dizziness, and felt very faint. She states she did not pass out but she decided to come directly to the emergency room. The patient states that her pelvic pain is not as severe today. She does have a history of ovarian cyst. The patient is unsure if there is a chance of . The patient is a very poor historian. She has been in emergency room multiple times in the past for similar vague symptoms. Review of Systems 10 system review was performed and was negative unless stated otherwise history of present illness. Past Medical/Surgical History Medical Problems: (1) Abdominal pain (2) Abdominal pain (3) Abdominal pain (4) Abdominal pain (5) Abdominal pain (6) Abdominal pain (7) Anemia (8) Asthma (9) Asthma exacerbation (10) Asthma exacerbation (11) Asthma exacerbation (12) Asthma exacerbation (13) Bronchitis (14) Bronchitis (15) Constipation (16) Constipation (17) Dehydration (18) Dental caries (19) Dyspnea (20) Dyspnea (21) Ear foreign body (22) Fever (23) Gastroenteritis (24) Gastroenteritis (25) Jaw pain (26) Left ear impacted cerumen (27) Leg pain, left (28) Medication reaction (29) Migraine (30) Migraine (31) Miscarriage (32) Nausea (33) Normal labor (34) Ovarian cyst (35) Pelvic pain (36) Pelvic pain (37) Pelvic pain in female (38) Pelvic pain in female (39) PID (pelvic inflammatory disease) (40) PID (pelvic inflammatory disease) (41) Removal of ovarian cyst (42) Right lower quadrant pain (43) Third trimester (44) URI (upper respiratory infection) (45) Vaginal delivery Surgical Problems: (1) History of laparoscopic appendectomy (2) Hx of appendectomy (3) Tonsillectomy Family History Diabetes mellitus Kidney stones Social History Smoking Status: Never Smoker Alcohol Use: occasionally Drug Use: none Marital Status: Housing Status: lives with family Occupation Status: employed Current/Historical Medications Scheduled Albuterol Hfa (Ventolin Hfa), 2-4 PUFFS INH Q6H Ferrous Sulfate (Iron), 325 MG PO DAILY Fish Oil ([place]-3), 1 CAP PO DAILY Multivitamin (Multivitamin), 1 TAB PO DAILY Allergies Coded Allergies: [place] (Verified Allergy, Unknown, SWELLING, 03/18/17) POLLEN (Verified Allergy, Unknown, UNKNOWN, 03/18/17) Physical Exam Vital Signs Date Time Temp Pulse Resp B/P Pulse Ox O2 Delivery O2 Flow Rate FiO2 03/18/17 13:29 36.6 78 18 115/72 98 Room Air Physical Exam GENERAL: 26-year-old white female appears in no acute distress. MENTAL Status: Alert and oriented 3. MOUTH: Mucosa is moist NECK: Supple, no lymphadenopathy noted. No carotid bruits noted. LUNGS: Clear auscultation without wheezes rales or rhonchi. CARDIAC: Regular rate and rhythm without murmur. Pulses is full and equal throughout. BACK: No CVA tenderness noted. ABDOMEN: Positive bowel sounds all 4 quadrants. Soft, nontender to palpation without organomegaly or masses. EXTREMITIES: No cyanosis or edema noted. Medical Decision & Procedures ER Provider Diagnostic Interpretation: ULTRASOUND OF THE PELVIS CLINICAL HISTORY: Menorrhagia. COMPARISON STUDY: Pelvic ultrasound dated 11/26/2016. TECHNIQUE: Real-time, grayscale, and color flow sonography of the pelvis is performed both transabdominally and endovaginally. Images are reviewed in the transverse and longitudinal planes. FINDINGS: Uterus: The uterus is normal in size and echotexture, measuring 7.5 x 3.8 x 4.5 cm. Endometrium: The endometrium is normal in appearance, and the endometrial stripe is normal in thickness measuring up to 0.4 cm. Ovaries: The ovaries are normal in size and morphology. The right ovary measures 1.8 x 1.0 x 2.8 cm and the left ovary measures 2.3 x 1.3 x 2.1 cm. There are small ovarian follicles. Normal Doppler waveforms are shown within both ovaries. Pelvis: There is trace free fluid in the cul-de-sac. No concerning adnexal lesion is seen. IMPRESSION: 1. No acute sonographic abnormality is identified in the pelvis. 2. Trace and likely physiologic free fluid is seen in the cul-de-sac. Electronically signed by: Elier Collins M.D. 03/18/2017 3:01 PM Dictated Date/Time: 03/18/2017 3:00 PM The status of this report is Signed. Laboratory Results 03/18/17 13:56 Red Blood Count 3.67, Mean Corpuscular Volume 85.0, Mean Corpuscular Hemoglobin 28.9, Mean Corpuscular Hemoglobin Concent 34.0, Mean Platelet Volume 11.0, Neutrophils (%) (Auto) 53.4, Lymphocytes (%) (Auto) 36.5, Monocytes (%) (Auto) 5.1, Eosinophils (%) (Auto) 4.4, Basophils (%) (Auto) 0.4, Neutrophils # (Auto) 2.81, Lymphocytes # (Auto) 1.92, Monocytes # (Auto) 0.27, Eosinophils # (Auto) 0.23, Basophils # (Auto) 0.02 03/18/17 13:56 Test 03/18/17 13:47 03/18/17 13:56 Urine Color YELLOW Urine Appearance CLEAR (CLEAR) Urine pH 8.0 (4.5-7.5) Urine Specific [place] 1.019 (1.000-1.030) Urine Protein NEG (NEG) Urine Glucose (UA) NEG (NEG) Urine Ketones NEG (NEG) Urine Occult Blood 1+ (NEG) Urine Nitrite NEG (NEG) Urine Bilirubin NEG (NEG) Urine Urobilinogen NEG (NEG) Urine Leukocyte Esterase NEG (NEG) Urine WBC (Auto) 0 /hpf (0-5) Urine RBC (Auto) 10-30 /hpf (0-4) Urine Hyaline Casts (Auto) 0 /lpf (0-5) Urine Epithelial Cells (Auto) 5-10 /lpf (0-5) Urine Bacteria (Auto) NEG (NEG) White Blood Count 5.26 K/uL (4.8-10.8) Red Blood Count 3.67 M/uL (4.2-5.4) Hemoglobin 10.6 g/dL (12.0-16.0) Hematocrit 31.2 % (37-47) Mean Corpuscular Volume 85.0 fL (80-100) Mean Corpuscular Hemoglobin 28.9 pg (25-34) Mean Corpuscular Hemoglobin Concent 34.0 g/dl (32-36) Platelet Count 167 K/uL (130-400) Mean Platelet Volume 11.0 fL (7.4-10.4) Neutrophils (%) (Auto) 53.4 % Lymphocytes (%) (Auto) 36.5 % Monocytes (%) (Auto) 5.1 % Eosinophils (%) (Auto) 4.4 % Basophils (%) (Auto) 0.4 % Neutrophils # (Auto) 2.81 K/uL (1.4-6.5) Lymphocytes # (Auto) 1.92 K/uL (1.2-3.4) Monocytes # (Auto) 0.27 K/uL (0.11-0.59) Eosinophils # (Auto) 0.23 K/uL (0-0.5) Basophils # (Auto) 0.02 K/uL (0-0.2) RDW Standard Deviation 39.2 fL (36.4-46.3) RDW Coefficient of Variation 12.7 % (11.5-14.5) Immature Granulocyte % (Auto) 0.2 % Immature Granulocyte # (Auto) 0.01 K/uL (0.00-0.02) Prothrombin Time 12.2 SECONDS (9.0-12.0) Prothromb Time International Ratio 1.1 (0.9-1.1) Activated Partial Thromboplast Time 26.8 SECONDS (21.0-31.0) Partial Thromboplastin Ratio 1.0 Anion Gap 4.0 mmol/L (3-11) Est Creatinine Clear Calc Drug Dose 98.8 ml/min Estimated GFR () 143.2 Estimated GFR (Non- 123.6 BUN/Creatinine Ratio 21.8 (10-20) Calcium Level 9.1 mg/dl (8.5-10.1) Total Bilirubin 0.3 mg/dl (0.2-1) Direct Bilirubin < 0.1 mg/dl (0-0.2) Aspartate Amino Transf (AST/SGOT) 16 U/L (15-37) Alanine Aminotransferase (ALT/SGPT) 28 U/L (12-78) Alkaline Phosphatase 43 U/L (45-117) Total Protein 7.1 gm/dl (6.4-8.2) Albumin 3.5 gm/dl (3.4-5.0) Lipase 138 U/L (73-393) Human Chorionic Gonadotropin, Quant < 1 mIU/mL Medications Administered Medications (Trade) Dose Ordered Sig/Smith Route Start Time Stop Time Status Last Admin Dose Admin Ondansetron HCl (Zofran Inj) 4 mg NOW STAT IV 03/18/17 13:41 03/18/17 13:45 DC 03/18/17 14:00 4 MG ED Course The patient was evaluated. IV access was obtained. The patient was given Zofran 4 mg IV push and Toradol 30 mg IV for pain. The nurse stated that the patient refused the Toradol. CBC and differential, renal profile, LFTs and lipase levels were ordered. Coags were ordered. Quantitative beta hCG was ordered. Labs are reviewed and were unremarkable. Beta hCG was negative for . Ultrasound of the pelvis was ordered and interpreted by the radiologist as above without any acute findings. The patient was informed of all findings and discharged home in stable condition. Medical Decision Differential diagnosis include ovarian cyst, early , endometriosis Impression Primary Impression: Vaginal bleeding Departure Information Dispostion Home / Self-Care Condition GOOD Referrals Anant Valiente III, M.D. (PCP) Forms HOME CARE DOCUMENTATION FORM, IMPORTANT VISIT INFORMATION, WORK / SCHOOL INSTRUCTIONS Patient Instructions My [facility] Additional Instructions Take Tylenol as needed for pain. Keep well-hydrated. 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
[2017-03-18 15:23] VITALS: BP 92/50; PULSE 87; O2SAT 97
[2017-06-01] MEDS ORDERED: FERR1TAB23 PO (01:38)
[2017-06-01] MEDS ORDERED: MULT-506 PO (01:39)
[2017-06-01] MEDS ORDERED: VNTHFA/IN INH (13:58)
[2017-06-01] MEDS ORDERED: OMEG10007 PO (15:33)
== END 2017-03-18 15:27 | disposition home or self-care (01) ==
LOC: C.EDB 13:28
DX: N93.9 Abnormal uterine and vaginal bleeding, unspecified (principal); J45.909 Unspecified asthma, uncomplicated; Z87.59 Personal history of other complications of pregnancy, childbirth and the puerperium; N73.9 Female pelvic inflammatory disease, unspecified; Z90.89 Acquired absence of other organs; Z83.3 Family history of diabetes mellitus; Z84.1 Family history of disorders of kidney and ureter

== ENCOUNTER → 2017-03-27 | Outpatient (CLI) | payer OTHER ==
[~2017-03-27] MED LIST changes: -ALBUAER2 INH; +ASCO500T3 PO; -CALCTAB5 PO; +FERR1TAB23 PO; +MULT-506 PO; +OMEG10007 PO; +OYST500T47 PO; +VNTHFA/IN INH
[2017-03-27 12:05] LABS: BASO % 0.6 %; BASO ABS # 0.03 K/uL (0-0.2); COMPLETE YES; EOS % 5.3 %; HEMATOCRIT 34.6 % (37-47); IG% 0.4 %; LYMPH % 40.1 %; LYMPH ABS # 1.97 K/uL (1.2-3.4); MEAN CELL VOLUME 86.5 fL (80-100); MEAN CORPUSCULAR HEMOGLOBIN 27.3 pg (25-34); MEAN CORPUSCULAR HGB CONC 31.5 g/dl (32-36); MEAN PLATELET VOLUME 11.7 fL (7.4-10.4); MONO % 5.7 %; NEUT % 47.9 %; PLATELET COUNT 171 K/uL (130-400); WHITE BLOOD COUNT 4.91 K/uL (4.8-10.8)
[2017-03-27 12:46] LABS: PREG INTERNAL NEGATIVE QC NEG CLEAR BACKGROUND; PREG INTERNAL POSITIVE QC POS CONTROL LINE
[2017-03-27 13:03] LABS: URINE APPEARANCE CLEAR (CLEAR); URINE BILIRUBIN NEG (NEG); URINE COLOR DK YELLOW; URINE NITRITE NEG (NEG); URINE PH 5.5 (4.5-7.5); URINE SPECIFIC GRAVITY 1.024 (1.000-1.030); UROBILINOGEN NEG (NEG)
[2017-03-27 13:17] LABS: MANUAL MICROSCOPIC REQUIRED? NO; REVIEW REQ? NO
== END | disposition home or self-care (01) ==
LOC: C.LAB1850 10:08
PROVIDERS: ATTEND Obstetrics & Gynecology
DX: O26.859 Spotting complicating pregnancy, unspecified trimester (principal); O26.899 Other specified pregnancy related conditions, unspecified trimester; N93.9 Abnormal uterine and vaginal bleeding, unspecified; O21.9 Vomiting of pregnancy, unspecified; O99.619 Diseases of the digestive system complicating pregnancy, unspecified trimester; K59.00 Constipation, unspecified

== ENCOUNTER 2017-04-08 16:18 | Emergency (ER) | payer OTHER ==
[~2017-04-08] VITALS: Ht 160 cm; Wt 45.7 kg
[2017-04-08 16:21] VITALS: TEMP 36.8; Ht 160 cm; Wt 45.7 kg
[2017-04-08] MEDS ORDERED: SODIUM CHLORIDE 0.9% 1000ML 1,000 ML IV STA (16:32)
[2017-04-08] MEDS ORDERED: ONDANSETRON INJ 2 MG/ML 2 ML VIAL IV STA (16:32)
[2017-04-08] MEDS ORDERED: KETOROLAC TROMETHAMINE 30 MG/ML VIAL IV STA (16:32)
[2017-04-08 17:21] LABS: BASO % 0.2 %; BASO ABS # 0.02 K/uL (0-0.2); COMPLETE YES; EOS % 0.7 %; HEMATOCRIT 33.9 % (37-47); IG% 0.2 %; LYMPH % 7.1 %; LYMPH ABS # 0.63 K/uL (1.2-3.4); MEAN CELL VOLUME 83.9 fL (80-100); MEAN CORPUSCULAR HEMOGLOBIN 28.2 pg (25-34); MEAN CORPUSCULAR HGB CONC 33.6 g/dl (32-36); MEAN PLATELET VOLUME 11.2 fL (7.4-10.4); MONO % 4.4 %; NEUT % 87.4 %; PLATELET COUNT 133 K/uL (130-400); RED BLOOD COUNT 4.04 M/uL (4.2-5.4); WHITE BLOOD COUNT 8.93 K/uL (4.8-10.8)
[2017-04-08 17:43] LABS: BUN/CREATININE RATIO 15.6 (10-20); CALCIUM 8.8 mg/dl (8.5-10.1); CREATININE 0.6 mg/dl (0.60-1.20); POTASSIUM 3.6 mmol/L (3.5-5.1)
--- NOTE | 2017-04-08 18:27 | EMERGENCY ROOM VISIT NOTE ---
History First contact with patient: 16:25 Chief Complaint: ABDOMINAL PAIN Stated Complaint: CHEST PAIN,SORE BODY, CANT EAT OR DRINK,VOMITING History of Present Illness The patient is a 26 year old female who is well-known to the emergency room presents to the Emergency Room with multiple: Complaints today. The patient started out stating that she has a sore throat but was just at [place] and was told her strep was negative. She was told if her symptoms worsen she should come to the emergency room. The patient did not even go home but came straight to the emergency room. The patient states that she feels achy all over, she feels nauseated and cannot eat or drink anything. She has not vomited. She also admits to generalized abdominal pain and stated "I have a history of ovarian cysts". The patient also admits to feeling chilled and shaky. She did not have a temperature in triage. The patient denies any urinary frequency, urgency, dysuria or hematuria. The patient denies any chest pain or shortness of breath. Review of Systems 10 system review was performed and was negative unless stated otherwise history of present illness. Past Medical/Surgical History Medical Problems: (1) Abdominal pain (2) Abdominal pain (3) Abdominal pain (4) Abdominal pain (5) Abdominal pain (6) Abdominal pain (7) Anemia (8) Asthma (9) Asthma exacerbation (10) Asthma exacerbation (11) Asthma exacerbation (12) Asthma exacerbation (13) Bronchitis (14) Bronchitis (15) Constipation (16) Constipation (17) Dehydration (18) Dental caries (19) Dyspnea (20) Dyspnea (21) Ear foreign body (22) Fever (23) Gastroenteritis (24) Gastroenteritis (25) Jaw pain (26) Left ear impacted cerumen (27) Leg pain, left (28) Medication reaction (29) Migraine (30) Migraine (31) Miscarriage (32) Nausea (33) Normal labor (34) Ovarian cyst (35) Pelvic pain (36) Pelvic pain (37) Pelvic pain in female (38) Pelvic pain in female (39) PID (pelvic inflammatory disease) (40) PID (pelvic inflammatory disease) (41) Removal of ovarian cyst (42) Right lower quadrant pain (43) Third trimester (44) URI (upper respiratory infection) (45) Vaginal delivery Surgical Problems: (1) History of laparoscopic appendectomy (2) Hx of appendectomy (3) Tonsillectomy Family History Diabetes mellitus Kidney stones Social History Smoking Status: Never Smoker Alcohol Use: occasionally Drug Use: none Marital Status: Housing Status: lives with family Occupation Status: employed Current/Historical Medications Scheduled Albuterol Hfa (Ventolin Hfa), 2-4 PUFFS INH Q6H Ferrous Sulfate (Iron), 325 MG PO DAILY Fish Oil ([place]-3), 1 CAP PO DAILY Multivitamin (Multivitamin), 1 TAB PO DAILY Allergies Coded Allergies: [place] (Verified Allergy, Unknown, SWELLING, 04/08/17) POLLEN (Verified Allergy, Unknown, UNKNOWN, 04/08/17) Physical Exam Vital Signs Date Time Temp Pulse Resp B/P Pulse Ox O2 Delivery O2 Flow Rate FiO2 04/08/17 16:21 36.8 118 20 97/60 100 Room Air Physical Exam PHYSICAL EXAM: Vital Signs were reviewed: Temperature 36.8, blood pressure 97/60 , pulse 118, respiratory rate 20 Reviewed Nurse's notes and agree. Oxygen saturation is 100 % on room air which is normal . GENERAL: 26-year-old female appears in no acute distress. MENTAL STATUS: Alert, oriented, coherent. EARS: Canals clear. TMs good light reflex, no erythema or fluid level noted. NOSE: Nasal mucosa with moderate erythema engorgement. PHARYNX: Mild erythema, no edema noted. No exudate noted. Airway is adequate. NECK: Supple, non-tender. No lymphadenopathy noted. LUNGS: Clear to auscultation without wheezes rales or rhonchi. CARDIAC: Regular rate and rhythm without murmur. BACK: No CVA tenderness noted. ABDOMEN: Positive bowel sounds all 4 quadrants soft, generalized tenderness palpation throughout without organomegaly or masses. SKIN: No rashes noted. Medical Decision & Procedures Laboratory Results 04/08/17 17:05 Red Blood Count 4.04, Mean Corpuscular Volume 83.9, Mean Corpuscular Hemoglobin 28.2, Mean Corpuscular Hemoglobin Concent 33.6, Mean Platelet Volume 11.2, Neutrophils (%) (Auto) 87.4, Lymphocytes (%) (Auto) 7.1, Monocytes (%) (Auto) 4.4, Eosinophils (%) (Auto) 0.7, Basophils (%) (Auto) 0.2, Neutrophils # (Auto) 7.81, Lymphocytes # (Auto) 0.63, Monocytes # (Auto) 0.39, Eosinophils # (Auto) 0.06, Basophils # (Auto) 0.02 04/08/17 17:05 Test 04/08/17 16:32 04/08/17 17:05 04/08/17 17:15 White Blood Count 8.93 K/uL (4.8-10.8) Red Blood Count 4.04 M/uL (4.2-5.4) Hemoglobin 11.4 g/dL (12.0-16.0) Hematocrit 33.9 % (37-47) Mean Corpuscular Volume 83.9 fL (80-100) Mean Corpuscular Hemoglobin 28.2 pg (25-34) Mean Corpuscular Hemoglobin Concent 33.6 g/dl (32-36) Platelet Count 133 K/uL (130-400) Mean Platelet Volume 11.2 fL (7.4-10.4) Neutrophils (%) (Auto) 87.4 % Lymphocytes (%) (Auto) 7.1 % Monocytes (%) (Auto) 4.4 % Eosinophils (%) (Auto) 0.7 % Basophils (%) (Auto) 0.2 % Neutrophils # (Auto) 7.81 K/uL (1.4-6.5) Lymphocytes # (Auto) 0.63 K/uL (1.2-3.4) Monocytes # (Auto) 0.39 K/uL (0.11-0.59) Eosinophils # (Auto) 0.06 K/uL (0-0.5) Basophils # (Auto) 0.02 K/uL (0-0.2) RDW Standard Deviation 39.3 fL (36.4-46.3) RDW Coefficient of Variation 12.9 % (11.5-14.5) Immature Granulocyte % (Auto) 0.2 % Immature Granulocyte # (Auto) 0.02 K/uL (0.00-0.02) Anion Gap 8.0 mmol/L (3-11) Est Creatinine Clear Calc Drug Dose 101.6 ml/min Estimated GFR () 144.8 Estimated GFR (Non- 124.9 BUN/Creatinine Ratio 15.6 (10-20) Calcium Level 8.8 mg/dl (8.5-10.1) Total Bilirubin 0.4 mg/dl (0.2-1) Direct Bilirubin 0.1 mg/dl (0-0.2) Aspartate Amino Transf (AST/SGOT) 11 U/L (15-37) Alanine Aminotransferase (ALT/SGPT) 18 U/L (12-78) Alkaline Phosphatase 41 U/L (45-117) Total Protein 7.1 gm/dl (6.4-8.2) Albumin 3.6 gm/dl (3.4-5.0) Lipase 107 U/L (73-393) Influenza Type A Antigen Neg for Influ A (NEG) Influenza Type B Antigen Neg for Influ B (NEG) Medications Administered Medications (Trade) Dose Ordered Sig/Smith Route Start Time Stop Time Status Last Admin Dose Admin Sodium Chloride (Nss 1000ml) 1,000 ml @ 999 mls/hr Q1H1M STAT IV 04/08/17 16:32 04/08/17 17:32 DC 04/08/17 17:23 999 MLS/HR Ondansetron HCl (Zofran Inj) 4 mg NOW STAT IV 04/08/17 16:32 04/08/17 16:34 DC 04/08/17 17:22 4 MG ED Course The patient was evaluated. The patient's EMR and medication list were reviewed. The patient had an ultrasound of the pelvis 21 days ago which did not reveal any ovarian cyst. IV access was obtained. The patient was given Toradol 30 mg IV and Zofran 4 mg IV push for nausea. Rapid influenza was negative for influenza A and influenza B.. CBC and differential, renal profile , LFTs and lipase levels were ordered. Urinalysis was ordered. Labs are reviewed and were unremarkable. Urine dip revealed a trace of ketones will be sent for urinalysis. The patient was informed of all findings discharged home in stable condition. Medical Decision The patient is well-known to the emergency room and has multiple complaints. I do not feel any imaging is warranted at this time. Impression Primary Impression: Body aches Additional Impression: Abdominal pain Departure Information Dispostion Home / Self-Care Condition GOOD Referrals Anant Valiente III, M.D. (PCP) Forms HOME CARE DOCUMENTATION FORM, IMPORTANT VISIT INFORMATION Patient Instructions My [facility] [place] [employer] Additional Instructions Push fluids, rest. Tylenol and/or ibuprofen for body aches or fever. Follow- up with your family physician in 2 days for recheck. Problem Qualifiers Additional Impression: Abdominal pain Abdominal location: generalized Qualified Codes: R10.84 - Generalized abdominal pain
[2017-04-08 18:44] LABS: URINE APPEARANCE CLEAR (CLEAR); URINE BILIRUBIN NEG (NEG); URINE COLOR YELLOW; URINE NITRITE NEG (NEG); URINE PH 5.5 (4.5-7.5); URINE SPECIFIC GRAVITY 1.018 (1.000-1.030); UROBILINOGEN NEG (NEG); ZZUR CULT IF INDIC CLEAN CATCH NO
[2017-04-08 18:45] LABS: MANUAL MICROSCOPIC REQUIRED? NO; REVIEW REQ? NO
[2017-04-08 19:00] VITALS: BP 112/77; PULSE 77; O2SAT 98
[2017-06-01] MEDS ORDERED: FERR1TAB23 PO (01:38)
[2017-06-01] MEDS ORDERED: MULT-506 PO (01:39)
[2017-06-01] MEDS ORDERED: VNTHFA/IN INH (13:58)
[2017-06-01] MEDS ORDERED: OMEG10007 PO (15:33)
== END 2017-04-08 19:03 | disposition home or self-care (01) ==
LOC: C.EDB 16:20
DX: R52 Pain, unspecified (principal); R10.84 Generalized abdominal pain; D64.9 Anemia, unspecified; J45.909 Unspecified asthma, uncomplicated; K59.00 Constipation, unspecified; Z83.3 Family history of diabetes mellitus; Z84.1 Family history of disorders of kidney and ureter

== ENCOUNTER 2017-06-01 21:25 | Emergency (ER) | payer OTHER ==
[~2017-06-01] VITALS: Ht 160 cm; Wt 45.0 kg
[~2017-06-01 21:25] MED LIST changes: -ASCO500T3 PO; -OYST500T47 PO
[2017-06-01 21:28] VITALS: TEMP 36.9; Ht 160 cm; Wt 45.0 kg
[2017-06-01 21:52] LABS: BASO % 0.3 %; BASO ABS # 0.02 K/uL (0-0.2); COMPLETE YES; HEMATOCRIT 33.4 % (37-47); IG% 0.3 %; LYMPH % 34.5 %; LYMPH ABS # 2.31 K/uL (1.2-3.4); MEAN CELL VOLUME 83.1 fL (80-100); MEAN CORPUSCULAR HEMOGLOBIN 28.4 pg (25-34); MEAN CORPUSCULAR HGB CONC 34.1 g/dl (32-36); MEAN PLATELET VOLUME 11.6 fL (7.4-10.4); MONO % 4.9 %; PLATELET COUNT 177 K/uL (130-400); RED BLOOD COUNT 4.02 M/uL (4.2-5.4)
[2017-06-01] MEDS ORDERED: ASCO500T3 PO (21:59)
[2017-06-01] MEDS ORDERED: OYST500T47 PO (21:59)
[2017-06-01 22:06] LABS: URINE APPEARANCE CLEAR (CLEAR); URINE BILIRUBIN NEG (NEG); URINE COLOR YELLOW; URINE NITRITE NEG (NEG); URINE PH 6.5 (4.5-7.5); URINE SPECIFIC GRAVITY 1.013 (1.000-1.030); UROBILINOGEN NEG (NEG); ZZUR CULT IF INDIC CLEAN CATCH NO
[2017-06-01 22:07] LABS: BUN/CREATININE RATIO 16.1 (10-20); CALCIUM 9.4 mg/dl (8.5-10.1); CREATININE 0.62 mg/dl (0.60-1.20); MANUAL MICROSCOPIC REQUIRED? NO; POTASSIUM 3.7 mmol/L (3.5-5.1); REVIEW REQ? NO
[2017-06-01 22:27] LABS: PREG INTERNAL NEGATIVE QC NEG CLEAR BACKGROUND; PREG INTERNAL POSITIVE QC POS CONTROL LINE
[2017-06-01 23:02] VITALS: BP 102/54; PULSE 78; O2SAT 100
--- NOTE | 2017-06-01 23:13 | EMERGENCY ROOM VISIT NOTE ---
History First contact with patient: 21:31 Chief Complaint: DIZZY Stated Complaint: DIZZY,NAUSEA,ABD PAIN,FAINT FEELING Nursing Triage Summary: pt reports abdominal pain with nausea , states "I may be and I would like a test " History of Present Illness The patient is a 27 year old female who presents to the Emergency Room with complaints of nausea and lightheadedness for the past few days. Patient is concerned she is . Patient denies chest pain, dyspnea, fever, chills, vomiting, diarrhea, vertigo, numbness, tingling, weakness, cough, congestion, urinary symptoms, headache, localized weakness. She is tolerating by mouth fluids and food. Review of Systems See HPI for pertinent positives & negatives. A total of 10 systems reviewed and were otherwise negative. Past Medical/Surgical History Medical Problems: (1) Abdominal pain (2) Abdominal pain (3) Abdominal pain (4) Abdominal pain (5) Abdominal pain (6) Abdominal pain (7) Anemia (8) Asthma (9) Asthma exacerbation (10) Asthma exacerbation (11) Asthma exacerbation (12) Asthma exacerbation (13) Bronchitis (14) Bronchitis (15) Constipation (16) Constipation (17) Dehydration (18) Dental caries (19) Dyspnea (20) Dyspnea (21) Ear foreign body (22) Fever (23) Gastroenteritis (24) Gastroenteritis (25) Jaw pain (26) Left ear impacted cerumen (27) Leg pain, left (28) Medication reaction (29) Migraine (30) Migraine (31) Miscarriage (32) Nausea (33) Normal labor (34) Ovarian cyst (35) Pelvic pain (36) Pelvic pain (37) Pelvic pain in female (38) Pelvic pain in female (39) PID (pelvic inflammatory disease) (40) PID (pelvic inflammatory disease) (41) Removal of ovarian cyst (42) Right lower quadrant pain (43) Third trimester (44) URI (upper respiratory infection) (45) Vaginal delivery Surgical Problems: (1) History of laparoscopic appendectomy (2) Hx of appendectomy (3) Tonsillectomy Family History Diabetes mellitus Kidney stones Social History Smoking Status: Never Smoker Alcohol Use: occasionally Drug Use: none Marital Status: Housing Status: lives with family Occupation Status: employed Current/Historical Medications Scheduled Ascorbic Acid (Vitamin C), 1 TAB PO DAILY Ferrous Sulfate (Iron), 325 MG PO DAILY Fish Oil ([place]-3), 1 CAP PO DAILY Multivitamin (Multivitamin), 1 TAB PO DAILY Oyster Shell (Calcium), 1 TAB PO DAILY Scheduled PRN Albuterol Hfa (Ventolin Hfa), 2-4 PUFFS INH Q6H PRN for SOB/Wheezing Allergies Coded Allergies: [place] (Verified Allergy, Unknown, SWELLING, 04/08/17) POLLEN (Verified Allergy, Unknown, UNKNOWN, 04/08/17) Physical Exam Vital Signs Date Time Temp Pulse Resp B/P (MAP) Pulse Ox O2 Delivery O2 Flow Rate FiO2 06/01/17 23:02 78 18 102/54 100 Room Air 06/01/17 21:28 36.9 68 18 112/70 100 Room Air Physical Exam VITALS: Vitals are noted on the nurse's note and reviewed by myself. Vital signs stable. GENERAL: Pleasant female who is well-known to this ER, in no acute distress, nondiaphoretic, well-developed well-nourished. SKIN: The skin was without rashes, erythema, edema, or bruising. There is no tenting of the skin. Capillary reflex less than 2 seconds. HEAD: Normocephalic atraumatic. EARS: External auditory canals clear, tympanic membranes pearly kowalski without erythema or effusion bilaterally. EYES: Pupils equal round and reactive to light and accommodation. Conjunctivae without injection, sclerae without icterus. Extraocular movements intact. NOSE: Patent, turbinates without inflammation or discharge. MOUTH: Mucous membranes moist. Pharynx without erythema or exudate. Uvula midline. Airway patent. Tongue does not deviate. NECK: Supple without nuchal rigidity. No lymphadenopathy. No thyromegaly. Cervical spine is nontender. No JVD. HEART: Regular rate and rhythm without murmurs gallops or rubs. LUNGS: Clear to auscultation bilaterally without wheezes, rales or rhonchi. No dullness to percussion. No retractions or accessory muscle use. ABDOMEN: Positive bowel sounds x 4. Normal tympanic percussion. Soft, nontender, without masses or organomegaly. Jimenez sign negative. No guarding or rebound tenderness. MUSCULOSKELETAL: No muscle atrophy, erythema, or edema noted. NEURO: Patient was alert and oriented to person place and time. Normal sensation to light and sharp touch. No focal neurological deficits. Cranial nerves II through XII grossly intact. No pronator drift. Cerebellar exam intact. Medical Decision & Procedures Laboratory Results 06/01/17 21:45 Red Blood Count 4.02, Mean Corpuscular Volume 83.1, Mean Corpuscular Hemoglobin 28.4, Mean Corpuscular Hemoglobin Concent 34.1, Mean Platelet Volume 11.6, Neutrophils (%) (Auto) 57.0, Lymphocytes (%) (Auto) 34.5, Monocytes (%) (Auto) 4.9, Eosinophils (%) (Auto) 3.0, Basophils (%) (Auto) 0.3, Neutrophils # (Auto) 3.82, Lymphocytes # (Auto) 2.31, Monocytes # (Auto) 0.33, Eosinophils # (Auto) 0.20, Basophils # (Auto) 0.02 06/01/17 21:45 Test 06/01/17 21:45 White Blood Count 6.70 K/uL (4.8-10.8) Red Blood Count 4.02 M/uL (4.2-5.4) Hemoglobin 11.4 g/dL (12.0-16.0) Hematocrit 33.4 % (37-47) Mean Corpuscular Volume 83.1 fL (80-100) Mean Corpuscular Hemoglobin 28.4 pg (25-34) Mean Corpuscular Hemoglobin Concent 34.1 g/dl (32-36) Platelet Count 177 K/uL (130-400) Mean Platelet Volume 11.6 fL (7.4-10.4) Neutrophils (%) (Auto) 57.0 % Lymphocytes (%) (Auto) 34.5 % Monocytes (%) (Auto) 4.9 % Eosinophils (%) (Auto) 3.0 % Basophils (%) (Auto) 0.3 % Neutrophils # (Auto) 3.82 K/uL (1.4-6.5) Lymphocytes # (Auto) 2.31 K/uL (1.2-3.4) Monocytes # (Auto) 0.33 K/uL (0.11-0.59) Eosinophils # (Auto) 0.20 K/uL (0-0.5) Basophils # (Auto) 0.02 K/uL (0-0.2) RDW Standard Deviation 39.3 fL (36.4-46.3) RDW Coefficient of Variation 13.0 % (11.5-14.5) Immature Granulocyte % (Auto) 0.3 % Immature Granulocyte # (Auto) 0.02 K/uL (0.00-0.02) Urine Color YELLOW Urine Appearance CLEAR (CLEAR) Urine pH 6.5 (4.5-7.5) Urine Specific [place] 1.013 (1.000-1.030) Urine Protein NEG (NEG) Urine Glucose (UA) NEG (NEG) Urine Ketones NEG (NEG) Urine Occult Blood NEG (NEG) Urine Nitrite NEG (NEG) Urine Bilirubin NEG (NEG) Urine Urobilinogen NEG (NEG) Urine Leukocyte Esterase NEG (NEG) Anion Gap 7.0 mmol/L (3-11) Est Creatinine Clear Calc Drug Dose 96.0 ml/min Estimated GFR () 142.2 Estimated GFR (Non- 122.7 BUN/Creatinine Ratio 16.1 (10-20) Calcium Level 9.4 mg/dl (8.5-10.1) Human Chorionic Gonadotropin, Qual NEG (NEG) ED Course Prior records/ancillary studies reviewed and summarized above. Nursing notes reviewed. The patient's history was concerning for lightheadedness with nausea concerns for Differential diagnosis: Etiologies such as metabolic, infection, hypo/hyperglycemia, , electrolyte abnormalities, cardiac sources, intracerebral event, toxicologic, neurologic, as well as others were entertained. Physical examination: As above. ER treatment provided: IV Lock By mouth fluids On reassessment the patient felt better. Diagnostics interpretation by me: The labs revealed mild anemia. Negative hCG. Negative urine Exam and history seem consistent with lightheadedness with nausea. Patient had unremarkable workup as above. She is tolerating fluids. She was ambulating without difficulties. She was neurovascularly and neurologically intact. She felt much better and requested to leave. I felt this is reasonable. She is encouraged to eat regular meals and stay well-hydrated the follow-up family care in a few days or here in the ER sooner for chest pains, difficulty breathing, weakness, vertigo, worsening signs or symptoms or as needed. By the evaluation outlined above emergent etiologies such as infection, electrolyte abnormalities, cardiac sources, intracerebral event, toxologic, neurologic, abnormalities blood glucose, metabolic, as well as others were deemed relatively unlikely. The pt informed about the findings as listed above. All questions were answered and pleased with the treatment. Return instructions were outlined and the patient was discharged in stable condition. Referral: The patient was referred back to primary care physician for follow-up in 2 to 3 days for a recheck of the current condition. Medical Decision As above Impression Primary Impression: Lightheadedness Departure Information Dispostion Home / Self-Care Condition GOOD Forms HOME CARE DOCUMENTATION FORM, IMPORTANT VISIT INFORMATION Patient Instructions My [facility] [employer] Additional Instructions Rest and drink plenty of fluids as tolerated. Slow sips of water or sports drinks are recommended instead of large amounts all at once. Continue current medications. You should avoid full, heavy meals for about 24 hrs from the time your symptoms resolved. Return to the ER for persistent vomiting, fevers, abdominal pain, chest pains, difficulty breathing, black or bloody stools, worsening of your condition, or as needed. Follow up with your primary physician in 2-3 days for a recheck of your current condition.
== END 2017-06-01 23:11 | disposition home or self-care (01) ==
LOC: C.EDB 21:26
DX: R42 Dizziness and giddiness (principal); R11.0 Nausea; J45.909 Unspecified asthma, uncomplicated; N83.209 Unspecified ovarian cyst, unspecified side; D64.9 Anemia, unspecified; Z87.19 Personal history of other diseases of the digestive system; Z86.19 Personal history of other infectious and parasitic diseases

== ENCOUNTER 2017-11-03 20:04 | Emergency (ER) | payer OTHER ==
[~2017-11-03] VITALS: Ht 160 cm; Wt 45.8 kg
[~2017-11-03 20:04] MED LIST changes: +ASCO500T3 PO; +OYST500T47 PO
[2017-11-03] MEDS ORDERED: SODIUM CHLORIDE 0.9% 1000ML 1,000 ML IV STA (20:08)
[2017-11-03] MEDS: METOCLOPRAMIDE HCL INJ 5 MG/ML 2 ML VIAL IV STA ×2 (20:08→20:35)
[2017-11-03] MEDS ORDERED: DiphenhydrAMINE HCL 50 MG/ML VIAL IV STA (20:08)
[2017-11-03 20:17] VITALS: TEMP 37; O2SAT 100; Ht 160 cm; Wt 45.8 kg
--- NOTE | 2017-11-03 20:19 | EMERGENCY ROOM VISIT NOTE ---
History Report prepared by Thanh: Tracy Leslie Under the Supervision of: Dr. Rudy Galindo M.D. First contact with patient: 20:05 Stated Complaint: GENERALIZED ILLNESS History of Present Illness The patient is a 27 year old female who presents to the Emergency Room with complaints of constant dizziness beginning 2 days ago. The patient states that she has a history of migraines that resolved after an appendectomy 2 years ago. The patient states that she developed a migraine for the first time since then yesterday and she had dizziness with that. This morning she began having intermittent chest pains that radiate to her back and last about 5-20 minutes. She reports that she was seen at urgent care just [facility] and was sent here to the ED. The patient states that she had panic attacks 2 years ago after being malnourished but has not had one since and this does not feel similar. The patient complains of nausea, blurred vision and hand numbness yesterday. She denies any cough, congestion, fever, chills, vomiting, history of blood clots, recent plane trips, cancer history, and control use. She reports a history of anemia. 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 The patient states that she is having increased stress and her brother is a heroin addict and she has been worried about him. Source of History: patient Onset: yesterday Position: other (global) Quality: other (dizziness) Timing: constant Associated Symptoms: + headache, + chest pain, + nausea, No fevers, No chills, No cough, No vomiting Note: The patient complains of blurred vision and hand numbness yesterday. She denies any congestion. Review of Systems See HPI for pertinent positives and negatives. A total of ten systems were reviewed and were otherwise negative. Past Medical & Surgical Medical Problems: (1) Abdominal pain (2) Abdominal pain (3) Abdominal pain (4) Abdominal pain (5) Abdominal pain (6) Abdominal pain (7) Anemia (8) Asthma (9) Asthma exacerbation (10) Asthma exacerbation (11) Asthma exacerbation (12) Asthma exacerbation (13) Bronchitis (14) Bronchitis (15) Constipation (16) Constipation (17) Dehydration (18) Dental caries (19) Dyspnea (20) Dyspnea (21) Ear foreign body (22) Fever (23) Gastroenteritis (24) Gastroenteritis (25) Jaw pain (26) Left ear impacted cerumen (27) Leg pain, left (28) Medication reaction (29) Migraine (30) Migraine (31) Miscarriage (32) Nausea (33) Normal labor (34) Ovarian cyst (35) Pelvic pain (36) Pelvic pain (37) Pelvic pain in female (38) Pelvic pain in female (39) PID (pelvic inflammatory disease) (40) PID (pelvic inflammatory disease) (41) Removal of ovarian cyst (42) Right lower quadrant pain (43) Third trimester (44) URI (upper respiratory infection) (45) Vaginal delivery Surgical Problems: (1) History of laparoscopic appendectomy (2) Hx of appendectomy (3) Tonsillectomy Family History No pertinent family history stated. Social History Marital Status: Housing Status: lives with family Occupation Status: unemployed Current/Historical Medications Scheduled Ascorbic Acid (Vitamin C), 1 TAB PO DAILY Ferrous Sulfate (Iron), 325 MG PO DAILY Fish Oil ([place]-3), 1 CAP PO DAILY Multivitamin (Multivitamin), 1 TAB PO DAILY Oyster Shell (Calcium), 1 TAB PO DAILY Scheduled PRN Albuterol Hfa (Ventolin Hfa), 2-4 PUFFS INH Q6H PRN for SOB/Wheezing Allergies Coded Allergies: [place] (Verified Allergy, Unknown, SWELLING, 09/19/17) POLLEN (Verified Allergy, Unknown, UNKNOWN, 09/19/17) Physical Exam Vital Signs Date Time Temp Pulse Resp B/P (MAP) Pulse Ox O2 Delivery O2 Flow Rate FiO2 11/03/17 21:34 68 20 106/67 98 Room Air 11/03/17 21:24 65 11/03/17 21:15 74 16 115/76 100 Room Air 11/03/17 20:17 100 Room Air 11/03/17 20:17 100 Room Air 11/03/17 20:17 37.0 64 16 106/66 100 Room Air Physical Exam GENERAL: Awake, alert, anxious appearing HENT: Normocephalic, atraumatic. Oropharynx unremarkable. EYES: Normal conjunctiva. Sclera non-icteric. NECK: Supple. No nuchal rigidity. FROM. No JVD. RESPIRATORY: Clear to auscultation. CARDIAC: Regular rate, normal rhythm. Extremities warm and well perfused. Pulses equal. ABDOMEN: Soft, non-distended. No tenderness to palpation. No rebound or guarding. No masses. RECTAL: Deferred. MUSCULOSKELETAL: Chest examination reveals no tenderness. The back is symmetrical on inspection without obvious abnormality. There is no CVA tenderness to palpation. No joint edema. LOWER EXTREMITIES: Calves are equal size bilaterally and non-tender. No edema. No discoloration. NEURO: Normal sensorium. No sensory or motor deficits noted. normal cerebellar function with [id number], alternating palms, [id number] SKIN: No rash or jaundice noted. Medical Decision & Procedures ER Provider Diagnostic Interpretation: X-ray: Per my interpretation, radiologist review. CHEST ONE VIEW PORTABLE FINDINGS: Lung volumes are normal. There is no pneumothorax or pleural effusion. There is no consolidation to suggest pneumonia. No evidence of pulmonary edema. Cardiomediastinal silhouette is normal. IMPRESSION: No acute cardiopulmonary findings. Electronically signed by: Cholo Taylor M.D. 11/03/2017 8:54 PM Dictated Date/Time: 11/03/2017 8:53 PM Laboratory Results 11/03/17 19:45 Red Blood Count 3.73, Mean Corpuscular Volume 85.8, Mean Corpuscular Hemoglobin 28.7, Mean Corpuscular Hemoglobin Concent 33.4, Mean Platelet Volume 11.5, Neutrophils (%) (Auto) 41.6, Lymphocytes (%) (Auto) 46.6, Monocytes (%) (Auto) 7.5, Eosinophils (%) (Auto) 3.6, Basophils (%) (Auto) 0.6, Neutrophils # (Auto) 2.90, Lymphocytes # (Auto) 3.25, Monocytes # (Auto) 0.52, Eosinophils # (Auto) 0.25, Basophils # (Auto) 0.04 11/03/17 19:45 Test 11/03/17 19:45 11/03/17 20:45 White Blood Count 6.97 K/uL (4.8-10.8) Red Blood Count 3.73 M/uL (4.2-5.4) Hemoglobin 10.7 g/dL (12.0-16.0) Hematocrit 32.0 % (37-47) Mean Corpuscular Volume 85.8 fL (80-100) Mean Corpuscular Hemoglobin 28.7 pg (25-34) Mean Corpuscular Hemoglobin Concent 33.4 g/dl (32-36) Platelet Count 147 K/uL (130-400) Mean Platelet Volume 11.5 fL (7.4-10.4) Neutrophils (%) (Auto) 41.6 % Lymphocytes (%) (Auto) 46.6 % Monocytes (%) (Auto) 7.5 % Eosinophils (%) (Auto) 3.6 % Basophils (%) (Auto) 0.6 % Neutrophils # (Auto) 2.90 K/uL (1.4-6.5) Lymphocytes # (Auto) 3.25 K/uL (1.2-3.4) Monocytes # (Auto) 0.52 K/uL (0.11-0.59) Eosinophils # (Auto) 0.25 K/uL (0-0.5) Basophils # (Auto) 0.04 K/uL (0-0.2) RDW Standard Deviation 40.7 fL (36.4-46.3) RDW Coefficient of Variation 12.9 % (11.5-14.5) Immature Granulocyte % (Auto) 0.1 % Immature Granulocyte # (Auto) 0.01 K/uL (0.00-0.02) Anion Gap 3.0 mmol/L (3-11) Est Creatinine Clear Calc Drug Dose 97.7 ml/min Estimated GFR () 142.2 Estimated GFR (Non- 122.7 BUN/Creatinine Ratio 22.7 (10-20) Calcium Level 9.1 mg/dl (8.5-10.1) Total Bilirubin 0.1 mg/dl (0.2-1) Direct Bilirubin < 0.1 mg/dl (0-0.2) Aspartate Amino Transf (AST/SGOT) 17 U/L (15-37) Alanine Aminotransferase (ALT/SGPT) 25 U/L (12-78) Alkaline Phosphatase 36 U/L (45-117) Troponin I < 0.015 ng/ml (0-0.045) Total Protein 7.1 gm/dl (6.4-8.2) Albumin 3.3 gm/dl (3.4-5.0) Lipase 116 U/L (73-393) Urine Color YELLOW Urine Appearance CLEAR (CLEAR) Urine pH >= 9.0 (4.5-7.5) Urine Specific [place] 1.011 (1.000-1.030) Urine Protein NEG (NEG) Urine Glucose (UA) NEG (NEG) Urine Ketones NEG (NEG) Urine Occult Blood NEG (NEG) Urine Nitrite NEG (NEG) Urine Bilirubin NEG (NEG) Urine Urobilinogen NEG (NEG) Urine Leukocyte Esterase NEG (NEG) Urine Test NEG (NEG) Laboratory results reviewed by me Medications Administered Medications (Trade) Dose Ordered Sig/Smith Route Start Time Stop Time Status Last Admin Dose Admin Sodium Chloride 1,000 ml @ 999 mls/hr Q1H1M STAT IV 11/03/17 20:08 11/03/17 21:08 DC 11/03/17 20:35 999 MLS/HR Diphenhydramine HCl (Benadryl Inj) 25 mg NOW STAT IV 11/03/17 20:08 11/03/17 20:12 DC 11/03/17 20:35 25 MG ECG Indication: chest pain Rate (beats per minute): 62 Rhythm: normal sinus Findings: no acute ischemic change, other (normal axis) ED Course 2005: The patient was evaluated in room C4. A complete history and physical exam was performed. Medical Decision I reviewed the patient's past medical history, medications, and the nursing notes as described above. The patient's presentation and history were concerning for pneumonia bronchitis , ACS, pericarditis, panic attack, migraine gastritis. The patient is a 27-year-old woman who presents emergency Department with migraine headache since yesterday developing shortness of breath and chest pain this morning sent from urgent care for evaluation per [facility]. On arrival the patient is anxious appearing but in no acute distress, afebrile stable vital signs. Neuro intact. Lungs clear to auscultation bilaterally. EKG unremarkable. Chest x-ray negative for pneumonia. Labs including WBC and troponin negative. She denies any worsening symptoms with lying flat and EKG is negative for ST elevations, VA depressions or Spodick sign thus pericarditis not likely. Heart score 0, low risk, ACS not likely. PERC negative PE not likely. Patient given IV fluids with improvement in symptoms. Findings and plan for follow-up reviewed with patient. Patient agreeable and d/c'd per discharge instructions. Medication Reconcilliation Current Medication List: was personally reviewed by me Blood Pressure Screening Patient's blood pressure: Normal blood pressure Blood pressure disposition: Did not require urgent referral Impression Primary Impression: Substernal chest pain Additional Impression: Migraine Scribe Attestation The scribe's documentation has been prepared under my direction and personally reviewed by me in its entirety. I confirm that the note above accurately reflects all work, treatment, procedures, and medical decision making performed by me. Departure Information Dispostion Home / Self-Care Patient Instructions ED Chest Pain Atypical Unkn Cause, ED Headache Migraine, My [facility] Additional Instructions Please follow up with your primary care physician in the next 1-3 days for re- evaluation. Your symptoms are most likely related to migraine and anxiety. Otherwise, your exam, EKG, chest xray, and lab results did not show signs of an emergent condition at this time. Return to the emergency department for worsening symptoms as described in the accompanying instructions. Problem Qualifiers
[2017-11-03 20:28] LABS: BASO % 0.6 %; BASO ABS # 0.04 K/uL (0-0.2); COMPLETE YES; EOS % 3.6 %; IG% 0.1 %; LYMPH % 46.6 %; LYMPH ABS # 3.25 K/uL (1.2-3.4); MEAN CELL VOLUME 85.8 fL (80-100); MEAN CORPUSCULAR HEMOGLOBIN 28.7 pg (25-34); MEAN CORPUSCULAR HGB CONC 33.4 g/dl (32-36); MEAN PLATELET VOLUME 11.5 fL (7.4-10.4); MONO % 7.5 %; NEUT % 41.6 %; PLATELET COUNT 147 K/uL (130-400); RED BLOOD COUNT 3.73 M/uL (4.2-5.4); WHITE BLOOD COUNT 6.97 K/uL (4.8-10.8)
[2017-11-03 20:51] LABS: ALT/SGPT 25 U/L (12-78); AST/SGOT 17 U/L (15-37); BLOOD UREA NITROGEN 14 mg/dl (7-18); BUN/CREATININE RATIO 22.7 (10-20); CALCIUM 9.1 mg/dl (8.5-10.1); CARBON DIOXIDE 28 mmol/L (21-32); CHLORIDE 105 mmol/L (98-107); CREATININE 0.62 mg/dl (0.60-1.20); GLUCOSE 95 mg/dl (70-99); POTASSIUM 3.7 mmol/L (3.5-5.1); SODIUM 136 mmol/L (136-145)
--- NOTE | 2017-11-03 20:55 | DIAGNOSTIC IMAGING REPORT ---
CHEST ONE VIEW PORTABLE CLINICAL HISTORY: Chest pain. COMPARISON STUDY: Chest radiograph April 02, 2016. FINDINGS: Lung volumes are normal. There is no pneumothorax or pleural effusion. There is no consolidation to suggest pneumonia. No evidence of pulmonary edema. Cardiomediastinal silhouette is normal. IMPRESSION: No acute cardiopulmonary findings. Electronically signed by: Cholo Taylor M.D. 11/03/2017 8:54 PM Dictated Date/Time: 11/03/2017 8:53 PM
[2017-11-03 20:56] LABS: ALKALINE PHOSPHATASE 36 U/L (45-117)
[2017-11-03 21:29] LABS: MANUAL MICROSCOPIC REQUIRED? NO; REVIEW REQ? NO; URINE APPEARANCE CLEAR (CLEAR); URINE BILIRUBIN NEG (NEG); URINE COLOR YELLOW; URINE NITRITE NEG (NEG); URINE PH >= 9.0 (4.5-7.5); URINE SPECIFIC GRAVITY 1.011 (1.000-1.030); UROBILINOGEN NEG (NEG); ZZUR CULT IF INDIC CLEAN CATCH NO
[2017-11-03 21:34] VITALS: BP 106/67; PULSE 68; O2SAT 98
== END 2017-11-03 21:40 | disposition home or self-care (01) ==
LOC: EDUNIT# 20:04 → C.EDC 20:07
DX: R07.2 Precordial pain (principal); G43.909 Migraine, unspecified, not intractable, without status migrainosus; J45.909 Unspecified asthma, uncomplicated; N83.209 Unspecified ovarian cyst, unspecified side; D64.9 Anemia, unspecified; Z87.19 Personal history of other diseases of the digestive system; Z86.19 Personal history of other infectious and parasitic diseases; Z79.899 Other long term (current) drug therapy; Z91.018 Allergy to other foods; Z91.09 Other allergy status, other than to drugs and biological substances

== ENCOUNTER 2017-12-27 23:41 | Emergency (ER) | payer OTHER ==
[~2017-12-27] VITALS: Ht 160 cm; Wt 46.4 kg
[2017-12-27 23:52] VITALS: TEMP 36.8; Ht 160 cm; Wt 46.4 kg
[2017-12-28] MEDS ORDERED: ONDANSETRON INJ 2 MG/ML 2 ML VIAL IV STA (00:07)
[2017-12-28] MEDS ORDERED: SODIUM CHLORIDE 0.9% 1000ML 1,000 ML IV STA (00:07)
[2017-12-28] MEDS ORDERED: ONDANSETRON 4MG OD TAB ONE (00:16)
[2017-12-28] MEDS ORDERED: ONDANSETRON 4MG OD TAB PO ONE (00:30)
[2017-12-28 00:49] LABS: BASO % 0.5 %; BASO ABS # 0.03 K/uL (0-0.2); EOS % 3.3 %; EOS ABS # 0.22 K/uL (0-0.5); HEMATOCRIT 32.2 % (37-47); HEMOGLOBIN 10.8 g/dL (12.0-16.0); IG# 0.03 K/uL (0.00-0.02); LYMPH % 40.1 %; LYMPH ABS # 2.67 K/uL (1.2-3.4); MEAN CORPUSCULAR HEMOGLOBIN 28.5 pg (25-34); MEAN CORPUSCULAR HGB CONC 33.5 g/dl (32-36); MEAN PLATELET VOLUME 11.3 fL (7.4-10.4); MONO % 6.6 %; MONO ABS # 0.44 K/uL (0.11-0.59); NEUT ABS # 3.27 K/uL (1.4-6.5); PLATELET COUNT 195 K/uL (130-400); RED CELL DISTRIBUTION WIDTH CV 12.9 % (11.5-14.5); WHITE BLOOD COUNT 6.66 K/uL (4.8-10.8)
[2017-12-28 01:06] LABS: CALCIUM 9.6 mg/dl (8.5-10.1); CREATININE 0.64 mg/dl (0.60-1.20); POTASSIUM 3.7 mmol/L (3.5-5.1)
--- NOTE | 2017-12-28 01:43 | EMERGENCY ROOM VISIT NOTE ---
History First contact with patient: 23:54 Chief Complaint: NAUSEA Stated Complaint: FATIQUE,DIZZY,NAUSEA,ABD PAIN,FOOD POISONING FEELI Nursing Triage Summary: Patient reports nausea today after eating chineese food. Patient states she feels like she has food poisoning. Patient reports she may be . History of Present Illness The patient is a 27 year old female who presents to the Emergency Room with complaints of nausea, lightheadedness and diarrhea after having Welsh food earlier today. Patient states he does not normally eat fatty foods like this. Patient denies chest pain, dyspnea, fever, chills, cough, congestion, vomiting, urinary symptoms. She is also worried she might be . Review of Systems An 10 system review of systems was completed with positives and pertinent negatives listed in the HPI. Past Medical/Surgical History Medical Problems: (1) Abdominal pain (2) Abdominal pain (3) Abdominal pain (4) Abdominal pain (5) Abdominal pain (6) Abdominal pain (7) Anemia (8) Asthma (9) Asthma exacerbation (10) Asthma exacerbation (11) Asthma exacerbation (12) Asthma exacerbation (13) Bronchitis (14) Bronchitis (15) Constipation (16) Constipation (17) Dehydration (18) Dental caries (19) Dyspnea (20) Dyspnea (21) Ear foreign body (22) Fever (23) Gastroenteritis (24) Gastroenteritis (25) Jaw pain (26) Left ear impacted cerumen (27) Leg pain, left (28) Medication reaction (29) Migraine (30) Migraine (31) Miscarriage (32) Nausea (33) Normal labor (34) Ovarian cyst (35) Pelvic pain (36) Pelvic pain (37) Pelvic pain in female (38) Pelvic pain in female (39) PID (pelvic inflammatory disease) (40) PID (pelvic inflammatory disease) (41) Removal of ovarian cyst (42) Right lower quadrant pain (43) Third trimester (44) URI (upper respiratory infection) (45) Vaginal delivery Surgical Problems: (1) History of laparoscopic appendectomy (2) Hx of appendectomy (3) Tonsillectomy Family History Diabetes mellitus Kidney stones Social History Smoking Status: Never Smoker Smokeless Tobacco Use: No Alcohol Use: occasionally Drug Use: none Marital Status: Housing Status: lives with family Occupation Status: unemployed Current/Historical Medications Scheduled Ascorbic Acid (Vitamin C), 1 TAB PO DAILY Ferrous Sulfate (Iron), 325 MG PO DAILY Fish Oil (Blue-3), 1 CAP PO DAILY Multivitamin (Multivitamin), 1 TAB PO DAILY Oyster Shell (Calcium), 1 TAB PO DAILY Scheduled PRN Albuterol Hfa (Ventolin Hfa), 2-4 PUFFS INH Q6H PRN for SOB/Wheezing Physical Exam Vital Signs Date Time Temp Pulse Resp B/P (MAP) Pulse Ox O2 Delivery O2 Flow Rate FiO2 12/27/17 23:52 36.8 69 18 117/69 100 Room Air Physical Exam VITALS: Vitals are noted on the nurse's note and reviewed by myself. Vital signs stable. GENERAL: Pleasant female well known to this ER x, in no acute distress, nondiaphoretic, well-developed well-nourished. SKIN: The skin was without rashes, erythema, edema, or bruising. There is no tenting of the skin. Capillary reflex less than 2 seconds. HEAD: Normocephalic atraumatic. EARS: External auditory canals clear, tympanic membranes pearly kowalski without erythema or effusion bilaterally. EYES: Pupils equal round and reactive to light and accommodation. Conjunctivae without injection, sclerae without icterus. Extraocular movements intact. NOSE: Patent, turbinates without inflammation or discharge. MOUTH: Mucous membranes moist. Pharynx without erythema or exudate. Uvula midline. Airway patent. Tongue does not deviate. NECK: Supple without nuchal rigidity. No lymphadenopathy. No thyromegaly. Cervical spine is nontender. No JVD. HEART: Regular rate and rhythm without murmurs gallops or rubs. LUNGS: Clear to auscultation bilaterally without wheezes, rales or rhonchi. No dullness to percussion. No retractions or accessory muscle use. ABDOMEN: Positive bowel sounds x 4. Normal tympanic percussion. Soft, nontender, without masses or organomegaly. Jimenez sign negative. No guarding or rebound tenderness. MUSCULOSKELETAL: No muscle atrophy, erythema, or edema noted. NEURO: Patient was alert and oriented to person place and time. Normal sensation to light and sharp touch. No focal neurological deficits. Medical Decision & Procedures Laboratory Results 12/28/17 00:25 Red Blood Count 3.79, Mean Corpuscular Volume 85.0, Mean Corpuscular Hemoglobin 28.5, Mean Corpuscular Hemoglobin Concent 33.5, Mean Platelet Volume 11.3, Neutrophils (%) (Auto) 49.0, Lymphocytes (%) (Auto) 40.1, Monocytes (%) (Auto) 6.6, Eosinophils (%) (Auto) 3.3, Basophils (%) (Auto) 0.5, Neutrophils # (Auto) 3.27, Lymphocytes # (Auto) 2.67, Monocytes # (Auto) 0.44, Eosinophils # (Auto) 0.22, Basophils # (Auto) 0.03 12/28/17 00:25 Test 12/28/17 00:25 White Blood Count 6.66 K/uL (4.8-10.8) Red Blood Count 3.79 M/uL (4.2-5.4) Hemoglobin 10.8 g/dL (12.0-16.0) Hematocrit 32.2 % (37-47) Mean Corpuscular Volume 85.0 fL (80-100) Mean Corpuscular Hemoglobin 28.5 pg (25-34) Mean Corpuscular Hemoglobin Concent 33.5 g/dl (32-36) Platelet Count 195 K/uL (130-400) Mean Platelet Volume 11.3 fL (7.4-10.4) Neutrophils (%) (Auto) 49.0 % Lymphocytes (%) (Auto) 40.1 % Monocytes (%) (Auto) 6.6 % Eosinophils (%) (Auto) 3.3 % Basophils (%) (Auto) 0.5 % Neutrophils # (Auto) 3.27 K/uL (1.4-6.5) Lymphocytes # (Auto) 2.67 K/uL (1.2-3.4) Monocytes # (Auto) 0.44 K/uL (0.11-0.59) Eosinophils # (Auto) 0.22 K/uL (0-0.5) Basophils # (Auto) 0.03 K/uL (0-0.2) RDW Standard Deviation 40.0 fL (36.4-46.3) RDW Coefficient of Variation 12.9 % (11.5-14.5) Immature Granulocyte % (Auto) 0.5 % Immature Granulocyte # (Auto) 0.03 K/uL (0.00-0.02) Anion Gap 5.0 mmol/L (3-11) Est Creatinine Clear Calc Drug Dose 95.9 ml/min Estimated GFR () 140.7 Estimated GFR (Non- 121.4 BUN/Creatinine Ratio 18.7 (10-20) Calcium Level 9.6 mg/dl (8.5-10.1) Human Chorionic Gonadotropin, Qual NEG (NEG) Medications Administered Medications (Trade) Dose Ordered Sig/Smith Route Start Time Stop Time Status Last Admin Dose Admin Sodium Chloride 1,000 ml @ 999 mls/hr Q1H1M STAT IV 12/28/17 00:07 12/28/17 01:07 DC 12/28/17 00:07 999 MLS/HR Ondansetron HCl (Zofran Inj) 4 mg NOW STAT IV 12/28/17 00:07 12/28/17 00:08 DC 12/28/17 00:33 4 MG Ondansetron HCl (Zofran Odt) 4 mg ONE ONCE PO 12/28/17 00:30 12/28/17 00:31 DC 12/28/17 00:33 4 MG ED Course Prior records/ancillary studies reviewed and summarized above. Nursing notes reviewed. The patient's history was concerning for N/D, lightheaded. Differential diagnosis: Etiologies such as metabolic, infection, hypo/hyperglycemia, electrolyte abnormalities, cardiac sources, intracerebral event, toxicologic, neurologic, as well as others were entertained. Physical examination: As above. ER treatment provided: IV Lock IV fluids, Zofran On reassessment the patient felt better. Diagnostics interpretation by me: The labs revealed stable anemia per chart review. Negative hCG Exam and history seem consistent with nausea and diarrhea. Patient felt much better after being medicated as above. She is tolerating fluids. She is requesting to leave. She was advised to avoid fatty foods that trigger her symptoms, rest and stay well-hydrated. She is advised to follow-up family here in a few days or here in the ER sooner for abdominal pain, fevers, vomiting, worsening signs or symptoms or as needed. Patient did not have acute abdomen on exam. She is well-appearing. By the evaluation outlined above emergent etiologies such as infection, electrolyte abnormalities, cardiac sources, intracerebral event, toxologic, neurologic, abnormalities blood glucose, metabolic, as well as others were deemed relatively unlikely. The pt informed about the findings as listed above. All questions were answered and pleased with the treatment. Return instructions were outlined and the patient was discharged in stable condition. Outpatient prescription management: zofran Referral: The patient was referred back to primary care physician for follow-up in 2 to 3 days for a recheck of the current condition. Medical Decision as above Medication Reconcilliation Current Medication List: was personally reviewed by me Blood Pressure Screening Patient's blood pressure: Normal blood pressure Impression Primary Impression: Diarrhea Additional Impressions: Nausea Anemia Departure Information Dispostion Home / Self-Care Condition GOOD Forms HOME CARE DOCUMENTATION FORM, IMPORTANT VISIT INFORMATION Patient Instructions Vomit Diarrhea Self Care, [facility] Additional Instructions Zofran(odansetron) tablets 4mg: Take one and allow it to dissolve in your mouth every four to six hours as needed for nausea or vomiting. Rest and drink plenty of fluids as tolerated. Slow sips of water or sports drinks are recommended instead of large amounts all at once. Continue current medications. Once your stomach is settled start with a clear liquid diet (jello, soup broth, etc.) and then advance as tolerated. You should avoid full, heavy meals for about 24 hrs from the time your symptoms resolved. Return to the ER for persistent vomiting, fevers, abdominal pain, chest pains, difficulty breathing, black or bloody stools, worsening of your condition, or as needed. Follow up with your primary physician in 2-3 days for a recheck of your current condition. Problem Qualifiers Primary Impression: Diarrhea Diarrhea type: unspecified type Qualified Codes: R19.7 - Diarrhea, unspecified
[2017-12-28] MEDS ORDERED: ONDANSETRON HOME PACK 4MG OD TAB PO ONE (01:45)
[2017-12-28 01:46] VITALS: BP 115/62; PULSE 76; O2SAT 98
== END 2017-12-28 01:47 | disposition home or self-care (01) ==
LOC: C.EDB 23:44 → C.EDC 12-28 01:47
DX: R19.7 Diarrhea, unspecified (principal); R11.0 Nausea; D64.9 Anemia, unspecified; J45.909 Unspecified asthma, uncomplicated; Z83.3 Family history of diabetes mellitus; Z84.1 Family history of disorders of kidney and ureter

== ENCOUNTER 2018-01-29 16:46 | Emergency (ER) | payer OTHER ==
[~2018-01-29] VITALS: Ht 160 cm; Wt 45.2 kg
[2018-01-29 16:49] VITALS: TEMP 36.6; Ht 160 cm; Wt 45.2 kg
[2018-01-29] MEDS ORDERED: SODIUM CHLORIDE 0.9% 1000ML 1,000 ML IV STA (17:37)
[2018-01-29] MEDS ORDERED: ONDANSETRON INJ 2 MG/ML 2 ML VIAL IV STA (17:37)
[2018-01-29] MEDS ORDERED: ONDANSETRON 4MG OD TAB PO STA (18:05)
--- NOTE | 2018-01-29 18:21 | DIAGNOSTIC IMAGING REPORT ---
SINGLE VIEW CHEST CLINICAL HISTORY: Generalized abdominal pain. FINDINGS: An AP, portable, upright chest radiograph is compared to study dated 11/03/2017. The examination is degraded by portable technique and patient rotation. The cardiomediastinal silhouette is unremarkable. The lungs and pleural spaces are clear. No pneumothorax is seen. The bony thorax is grossly intact. IMPRESSION: No active disease in the chest. Electronically signed by: Elier Collins M.D. 01/29/2018 6:20 PM Dictated Date/Time: 01/29/2018 6:20 PM
[2018-01-29 18:42] LABS: BASO % 0.3 %; BASO ABS # 0.02 K/uL (0-0.2); EOS % 1.6 %; HEMATOCRIT 37.9 % (37-47); HEMOGLOBIN 12.5 g/dL (12.0-16.0); IG# 0.02 K/uL (0.00-0.02); LYMPH % 14.4 %; LYMPH ABS # 0.89 K/uL (1.2-3.4); MEAN CELL VOLUME 84.2 fL (80-100); MEAN CORPUSCULAR HEMOGLOBIN 27.8 pg (25-34); MEAN PLATELET VOLUME 11.7 fL (7.4-10.4); MONO % 4.9 %; NEUT % 78.5 %; NEUT ABS # 4.83 K/uL (1.4-6.5); PLATELET COUNT 173 K/uL (130-400); RED CELL DISTRIBUTION WIDTH CV 13.3 % (11.5-14.5); WHITE BLOOD COUNT 6.16 K/uL (4.8-10.8)
[2018-01-29 18:59] LABS: ALBUMIN 3.7 gm/dl (3.4-5.0); ALT/SGPT 22 U/L (12-78); BLOOD UREA NITROGEN 13 mg/dl (7-18); CALCIUM 9.6 mg/dl (8.5-10.1); CARBON DIOXIDE 25 mmol/L (21-32); CREATININE 0.66 mg/dl (0.60-1.20); GLUCOSE 88 mg/dl (70-99); INR 1.1 (0.9-1.1); LIPASE 102 U/L (73-393); POTASSIUM 3.4 mmol/L (3.5-5.1); PTT PATIENT 26.3 SECONDS (21.0-31.0); SODIUM 137 mmol/L (136-145)
[2018-01-29 19:02] LABS: ALKALINE PHOSPHATASE 47 U/L (45-117); AST/SGOT 15 U/L (15-37); TOTAL PROTEIN 7.9 gm/dl (6.4-8.2)
--- NOTE | 2018-01-29 19:17 | EMERGENCY ROOM VISIT NOTE ---
History Report prepared by Thanh: Gennaro Anthony Under the Supervision of: Dr. Tomi Nolasco D.O. First contact with patient: 17:32 Chief Complaint: ABDOMINAL PAIN Stated Complaint: SEVERE NAUSEA, DIZZY, STOMACH PAIN Nursing Triage Summary: Patient c/o abdominal pain, nauseated and dizzy. Feeling ill for 2 days. History of Present Illness The patient is a 27 year old female who presents to the Emergency Room with complaints of persistent abdominal pain that began three days ago. She currently rates her pain a 6/10 in severity. She reports that she has been feeling sick for the last six weeks and reports that her daughter has influenza. She reports chills, headache, hot flashes, body aches, and severe nausea. She denies any fevers or vomiting. She notes her last normal bowel movement was yesterday. She notes her LNMP ended yesterday. She denies any chance of . She notes that she has been having irregular menstrual cycles for the last three months. She reports a history of adenoidectomy, appendectomy, tonsillectomy, and wisdom teeth extraction. Source of History: patient Onset: three days Position: abdomen Symptom Intensity: 6/10 Timing: other (persistent) Associated Symptoms: + chills, + headache, + nausea, No fevers, No vomiting Note: She notes hot flashes and body aches. Review of Systems See HPI for pertinent positives & negatives. A total of 10 systems reviewed and were otherwise negative. Past Medical & Surgical Medical Problems: (1) Abdominal pain (2) Abdominal pain (3) Abdominal pain (4) Abdominal pain (5) Abdominal pain (6) Abdominal pain (7) Anemia (8) Asthma (9) Asthma exacerbation (10) Asthma exacerbation (11) Asthma exacerbation (12) Asthma exacerbation (13) Bronchitis (14) Bronchitis (15) Constipation (16) Constipation (17) Dehydration (18) Dental caries (19) Dyspnea (20) Dyspnea (21) Ear foreign body (22) Fever (23) Gastroenteritis (24) Gastroenteritis (25) Jaw pain (26) Left ear impacted cerumen (27) Leg pain, left (28) Medication reaction (29) Migraine (30) Migraine (31) Miscarriage (32) Nausea (33) Normal labor (34) Ovarian cyst (35) Pelvic pain (36) Pelvic pain (37) Pelvic pain in female (38) Pelvic pain in female (39) PID (pelvic inflammatory disease) (40) PID (pelvic inflammatory disease) (41) Removal of ovarian cyst (42) Right lower quadrant pain (43) Third trimester (44) URI (upper respiratory infection) (45) Vaginal delivery Surgical Problems: (1) H/O adenoidectomy (2) H/O wisdom tooth extraction (3) History of laparoscopic appendectomy (4) Hx of appendectomy (5) Hx of tonsillectomy (6) Tonsillectomy Family History Diabetes mellitus Kidney stones Social History Smoking Status: Never Smoker Alcohol Use: occasionally Drug Use: none Marital Status: Housing Status: lives with family Occupation Status: unemployed Current/Historical Medications Scheduled Ascorbic Acid (Vitamin C), 1 TAB PO DAILY Ferrous Sulfate (Iron), 325 MG PO DAILY Fish Oil ([place]-3), 1 CAP PO DAILY Multivitamin (Multivitamin), 1 TAB PO DAILY Oyster Shell (Calcium), 1 TAB PO DAILY Scheduled PRN Albuterol Hfa (Ventolin Hfa), 2-4 PUFFS INH Q6H PRN for SOB/Wheezing Allergies Coded Allergies: [place] (Verified Allergy, Unknown, SWELLING, 01/29/18) POLLEN (Verified Allergy, Unknown, UNKNOWN, 01/29/18) Physical Exam Vital Signs Date Time Temp Pulse Resp B/P (MAP) Pulse Ox O2 Delivery O2 Flow Rate FiO2 01/29/18 18:54 65 16 108/59 01/29/18 16:49 36.6 83 16 118/79 100 Room Air Physical Exam CONSTITUTIONAL/VITAL SIGNS: Reviewed / noted above. GENERAL: Non-toxic in appearance. INTEGUMENTARY: Warm, dry, and [place]. HEAD: Normocephalic. EYES: without scleral icterus or trauma. ENT/OROPHARYNX: clear and moist. LYMPHADENOPATHY/NECK: Is supple without lymphadenopathy or meningismus. RESPIRATORY: Lungs clear and equal. CARDIOVASCULAR: Regular rate and rhythm. GI/ABDOMEN: Soft and mild diffuse abdominal pain. No organomegaly or pulsatile mass. No rebound or guarding. Normal bowel sounds. EXTREMITIES: Warm and well perfused. BACK: No CVA tenderness. NEUROLOGICAL: Intact without focal deficits. PSYCHIATRIC: normal affect. MUSCULOSKELETAL: Normally developed with good muscle tone. Medical Decision & Procedures ER Provider Diagnostic Interpretation: Radiology results as stated below per my review and radiologist interpretation: SINGLE VIEW CHEST CLINICAL HISTORY: Generalized abdominal pain. FINDINGS: An AP, portable, upright chest radiograph is compared to study dated 11/03/2017. The examination is degraded by portable technique and patient rotation. The cardiomediastinal silhouette is unremarkable. The lungs and pleural spaces are clear. No pneumothorax is seen. The bony thorax is grossly intact. IMPRESSION: No active disease in the chest. Electronically signed by: Elier Collins M.D. 01/29/2018 6:20 PM Dictated Date/Time: 01/29/2018 6:20 PM Laboratory Results 01/29/18 18:30 Red Blood Count 4.50, Mean Corpuscular Volume 84.2, Mean Corpuscular Hemoglobin 27.8, Mean Corpuscular Hemoglobin Concent 33.0, Mean Platelet Volume 11.7, Neutrophils (%) (Auto) 78.5, Lymphocytes (%) (Auto) 14.4, Monocytes (%) (Auto) 4.9, Eosinophils (%) (Auto) 1.6, Basophils (%) (Auto) 0.3, Neutrophils # (Auto) 4.83, Lymphocytes # (Auto) 0.89, Monocytes # (Auto) 0.30, Eosinophils # (Auto) 0.10, Basophils # (Auto) 0.02 01/29/18 18:30 Test 01/29/18 17:39 01/29/18 18:30 Urine Color YELLOW Urine Appearance CLEAR (CLEAR) Urine pH 8.5 (4.5-7.5) Urine Specific [place] 1.013 (1.000-1.030) Urine Protein NEG (NEG) Urine Glucose (UA) NEG (NEG) Urine Ketones NEG (NEG) Urine Occult Blood NEG (NEG) Urine Nitrite NEG (NEG) Urine Bilirubin NEG (NEG) Urine Urobilinogen NEG (NEG) Urine Leukocyte Esterase NEG (NEG) Urine WBC (Auto) 0 /hpf (0-5) Urine RBC (Auto) 0-4 /hpf (0-4) Urine Hyaline Casts (Auto) 0 /lpf (0-5) Urine Epithelial Cells (Auto) 10-20 /lpf (0-5) Urine Bacteria (Auto) NEG (NEG) Urine Test NEG (NEG) White Blood Count 6.16 K/uL (4.8-10.8) Red Blood Count 4.50 M/uL (4.2-5.4) Hemoglobin 12.5 g/dL (12.0-16.0) Hematocrit 37.9 % (37-47) Mean Corpuscular Volume 84.2 fL (80-100) Mean Corpuscular Hemoglobin 27.8 pg (25-34) Mean Corpuscular Hemoglobin Concent 33.0 g/dl (32-36) Platelet Count 173 K/uL (130-400) Mean Platelet Volume 11.7 fL (7.4-10.4) Neutrophils (%) (Auto) 78.5 % Lymphocytes (%) (Auto) 14.4 % Monocytes (%) (Auto) 4.9 % Eosinophils (%) (Auto) 1.6 % Basophils (%) (Auto) 0.3 % Neutrophils # (Auto) 4.83 K/uL (1.4-6.5) Lymphocytes # (Auto) 0.89 K/uL (1.2-3.4) Monocytes # (Auto) 0.30 K/uL (0.11-0.59) Eosinophils # (Auto) 0.10 K/uL (0-0.5) Basophils # (Auto) 0.02 K/uL (0-0.2) RDW Standard Deviation 41.0 fL (36.4-46.3) RDW Coefficient of Variation 13.3 % (11.5-14.5) Immature Granulocyte % (Auto) 0.3 % Immature Granulocyte # (Auto) 0.02 K/uL (0.00-0.02) Prothrombin Time 11.6 SECONDS (9.0-12.0) Prothromb Time International Ratio 1.1 (0.9-1.1) Activated Partial Thromboplast Time 26.3 SECONDS (21.0-31.0) Partial Thromboplastin Ratio 1.0 Anion Gap 9.0 mmol/L (3-11) Est Creatinine Clear Calc Drug Dose 90.6 ml/min Estimated GFR () 139.3 Estimated GFR (Non- 120.2 BUN/Creatinine Ratio 19.6 (10-20) Calcium Level 9.6 mg/dl (8.5-10.1) Total Bilirubin 0.3 mg/dl (0.2-1) Direct Bilirubin < 0.1 mg/dl (0-0.2) Aspartate Amino Transf (AST/SGOT) 15 U/L (15-37) Alanine Aminotransferase (ALT/SGPT) 22 U/L (12-78) Alkaline Phosphatase 47 U/L (45-117) Total Protein 7.9 gm/dl (6.4-8.2) Albumin 3.7 gm/dl (3.4-5.0) Lipase 102 U/L (73-393) Laboratory results as stated above per my review. Medications Administered Medications (Trade) Dose Ordered Sig/Smith Route Start Time Stop Time Status Last Admin Dose Admin Ondansetron HCl (Zofran Odt) 4 mg NOW STAT PO 01/29/18 18:05 01/29/18 18:12 DC 01/29/18 18:16 4 MG ED Course 1732: Previous medical records were reviewed. The patient was evaluated in room C1B. A complete history and physical examination was performed. 1736: Ordered Zofran 4 mg IV and Sodium Chloride 1,000 ml @ 999 mls/hr IV 1805: Ordered Zofran 4 mg PO 1921: I reassessed the patient at this time. She is feeling better and resting comfortably. I discussed the results and treatment plan with the patient. I answered all pertaining questions that she had. She expressed understanding and verbalized agreement. The patient will be discharged home. Medical Decision Differential considered: pancreatitis, hepatitis, or acute cholecystitis, AAA, UTI, pyelonephritis, kidney stones, appendicitis, diverticulitis, shingles, bowel obstruction mesenteric ischemia, intussusception, hernia, testicular torsion, ovarian torsion, ruptured ovarian cyst, ectopic , . This is a 19-year-old female who presents to the ED with a chief complaint of abdominal discomfort. The patient reports some nausea as well as some chills. She has had the symptoms for 3 days. She states that 1 of her daughters has also had similar symptoms recently with a flulike illness. The patient denies having fevers. She denies any chest pains, shortness of breath, flank pain. No abnormal vaginal discharge or bleeding. She states that she just finished her last menstrual period. Physical exam revealed some mild diffuse abdominal tenderness. Exam is otherwise unremarkable. CBC and complete metabolic panel as well as lipase are normal. Urine did not show infection and test was negative. The patient was given p.o. Zofran per her request. She did not want IV Zofran. She was told the results of the test. She is felt to be stable for discharge. Medication Reconcilliation Current Medication List: was personally reviewed by me Blood Pressure Screening Patient's blood pressure: Normal blood pressure Impression Primary Impression: Diffuse abdominal pain Additional Impression: Nausea Scribe Attestation The scribe's documentation has been prepared under my direction and personally reviewed by me in its entirety. I confirm that the note above accurately reflects all work, treatment, procedures, and medical decision making performed by me. Departure Information Dispostion Home / Self-Care Referrals No Doctor, Assigned (PCP) Forms HOME CARE DOCUMENTATION FORM, IMPORTANT VISIT INFORMATION Patient Instructions Abdominal Pain - [facility], [facility] Additional Instructions Follow-up with your doctor for further care and evaluation in 1-2 days. Return to the emergency department for worsening or new symptoms or any concerns. You have been examined and treated today on an emergency basis only. This is not a substitute for, or an effort to provide, complete comprehensive medical care. It is impossible to recognize and treat all injuries or illnesses in a single emergency department visit. It is therefore important that you follow up closely with your doctor. Call as soon as possible for an appointment. Problem Qualifiers
[2018-01-29 20:06] VITALS: BP 106/62; PULSE 68; O2SAT 100
== END 2018-01-29 20:07 | disposition home or self-care (01) ==
LOC: C.EDB 16:47 → C.EDC 20:07
DX: R10.9 Unspecified abdominal pain (principal); R11.0 Nausea; D64.9 Anemia, unspecified; J45.909 Unspecified asthma, uncomplicated; G43.909 Migraine, unspecified, not intractable, without status migrainosus; N73.9 Female pelvic inflammatory disease, unspecified; Z83.3 Family history of diabetes mellitus; Z84.1 Family history of disorders of kidney and ureter; Z79.899 Other long term (current) drug therapy; Z91.048 Other nonmedicinal substance allergy status; Z91.018 Allergy to other foods

== ENCOUNTER 2018-01-31 18:24 | Emergency (ER) | payer OTHER ==
[~2018-01-31] VITALS: Ht 160 cm; Wt 43.9 kg
[2018-01-31 18:27] VITALS: BP 106/73; PULSE 77; TEMP 36.5; O2SAT 92; Ht 160 cm; Wt 43.9 kg
[2018-01-31] MEDS ORDERED: IBUPROFEN 600 MG TAB PO STA (18:43)
--- NOTE | 2018-01-31 19:28 | DIAGNOSTIC IMAGING REPORT ---
L ELBOW MIN 3 VIEWS ROUTINE CLINICAL HISTORY: elbow injury, eval fx trauma. Pain. COMPARISON: None. DISCUSSION: The bones and joint spaces appear intact. There is no evidence of fracture, dislocation or bony disease. There is no evidence for soft tissue swelling. IMPRESSION: Negative study. The above report was generated using voice recognition software. It may contain grammatical, syntax or spelling errors. Electronically signed by: Bruno Castle M.D. 01/31/2018 7:26 PM Dictated Date/Time: 01/31/2018 7:26 PM
--- NOTE | 2018-01-31 20:21 | EMERGENCY ROOM VISIT NOTE ---
ED Visit Note First contact with patient: 18:35 CHIEF COMPLAINT: Elbow pain HISTORY OF PRESENT ILLNESS: This 27-year-old female patient presents to the emergency department by private vehicle complaining of pain in the left elbow after an injury 3 hours ago. She states she tripped and stepped forward, hitting her left elbow on a bed frame. She had immediate pain that shoots from her elbow down to her finger tips and also radiates up toward the shoulder. She states "I hit it right on the funny bone." She also states she has had tingling in the arm and hand that is worse with moving her fingers and wrist. She denies any bruising or swelling of the elbow. Increased pain with bending and straightening the elbow. The patient rates their pain as burning and throbbing and 5/10. The patient has taken no medications for relief of the pain. The patient has not had previous fractures or injury to this elbow. Patient does not have any weakness in the arm, but states that it hurts to move. The patient denies any other injuries. She denies any chest pain, shortness of breath, abdominal pain, nausea or vomiting, headaches, or neck pain. She denies any recent fevers or chills. REVIEW OF SYSTEMS: A 6 system review of systems was completed with positives and pertinent negatives listed in the HPI. ALLERGIES: Reviewed in chart. MEDICATIONS: Reviewed in chart. PMH: Reviewed in chart. SOCIAL HISTORY: Lives at home. Denies tobacco use. PHYSICAL EXAM: Vital Signs: Reviewed Nurse's notes, vital signs stable. GENERAL : Pleasant and cooperative, in no acute distress, well-developed, well- nourished. SKIN: The skin was without rashes, erythema, edema, warmth, or bruising. Capillary reflex less than 3 seconds. MUSCULOSKELETAL: The patient is holding their left elbow in a flexed position against the body. There is tenderness over the entire elbow to palpation, most tender over the posterior aspect. There is increased pain with flexion and extension of the left elbow. There is no tenderness of the shoulder, wrist, or hand. The patient is able to give a thumbs up, make an OK sign, and a #3 with their fingers. Radial pulse 2+ . NEURO: Patient was alert and oriented to person place and time. Distal sensation intact to light and sharp touch. EMERGENCY DEPARTMENT COURSE: I examined the patient. An x-ray of the left elbow was reviewed myself and read by radiology and shows no acute abnormalities. The patient was placed in a sling under my direction and the position was satisfactory. Neurovascular status was rechecked and intact. Patient continues to complain of tingling in the fingers and increased pain with movement, but neurovascular status remains the same, with sensation and motor function intact. Patient was instructed to rest her arm, ice and NSAIDs for pain, and to follow-up with her primary care provider or orthopedic surgeon if her symptoms have not improved in the next few days. The patient was discharged home in stable condition. Problem List Medical Problems: (1) Abdominal pain Status: Resolved (2) Abdominal pain Status: Resolved (3) Abdominal pain Status: Resolved (4) Abdominal pain Status: Resolved (5) Abdominal pain Status: Resolved (6) Abdominal pain Status: Resolved (7) Anemia Status: Chronic (8) Asthma Status: Chronic (9) Asthma exacerbation Status: Resolved (10) Asthma exacerbation Status: Resolved (11) Asthma exacerbation Status: Resolved (12) Asthma exacerbation Status: Resolved (13) Bronchitis Status: Resolved (14) Bronchitis Status: Resolved (15) Constipation Status: Resolved (16) Constipation Status: Resolved (17) Dehydration Status: Resolved (18) Dental caries Status: Resolved (19) Dyspnea Status: Resolved (20) Dyspnea Status: Resolved (21) Ear foreign body Status: Resolved (22) Fever Status: Resolved (23) Gastroenteritis Status: Resolved (24) Gastroenteritis Status: Resolved (25) Jaw pain Status: Resolved (26) Left ear impacted cerumen Status: Resolved (27) Leg pain, left Status: Resolved (28) Medication reaction Status: Resolved (29) Migraine Status: Chronic (30) Migraine Status: Resolved (31) Miscarriage Status: Resolved (32) Nausea Status: Resolved (33) Normal labor Status: Resolved (34) Ovarian cyst Status: Resolved (35) Pelvic pain Status: Resolved (36) Pelvic pain Status: Resolved (37) Pelvic pain in female Status: Resolved (38) Pelvic pain in female Status: Resolved (39) PID (pelvic inflammatory disease) Status: Resolved (40) PID (pelvic inflammatory disease) Status: Resolved (41) Removal of ovarian cyst Status: Resolved (42) Right lower quadrant pain Status: Resolved (43) Third trimester Status: Resolved (44) URI (upper respiratory infection) Status: Resolved (45) Vaginal delivery Status: Resolved Surgical Problems: (1) H/O adenoidectomy Status: Resolved (2) H/O wisdom tooth extraction Status: Resolved (3) History of laparoscopic appendectomy Status: Resolved (4) Hx of appendectomy Status: Resolved (5) Hx of tonsillectomy Status: Resolved (6) Tonsillectomy Status: Resolved Current/Historical Medications Scheduled Ascorbic Acid (Vitamin C), 1 TAB PO DAILY Ferrous Sulfate (Iron), 325 MG PO DAILY Fish Oil ([place]-3), 1 CAP PO DAILY Multivitamin (Multivitamin), 1 TAB PO DAILY Oyster Shell (Calcium), 1 TAB PO DAILY Scheduled PRN Albuterol Hfa (Ventolin Hfa), 2-4 PUFFS INH Q6H PRN for SOB/Wheezing Allergies Coded Allergies: [place] (Verified Allergy, Unknown, SWELLING, 01/29/18) POLLEN (Verified Allergy, Unknown, UNKNOWN, 01/29/18) Vital Signs Date Time Temp Pulse Resp B/P (MAP) Pulse Ox O2 Delivery O2 Flow Rate FiO2 01/31/18 18:27 36.5 77 18 106/73 92 Room Air Medications Administered Medications (Trade) Dose Ordered Sig/Smith Route Start Time Stop Time Status Last Admin Dose Admin Ibuprofen (Motrin Tab) 600 mg NOW STAT PO 01/31/18 18:43 01/31/18 18:45 DC 01/31/18 18:54 600 MG Departure Information Impression Primary Impression: Left elbow contusion Additional Impression: Neuralgia of left upper extremity Dispostion Home / Self-Care Condition GOOD Referrals Anant Valiente III, M.D. (PCP) Davey Kunz MD Patient Instructions ED Contusion Elbow, My [facility] Additional Instructions You have been treated in the Emergency Department for Elbow Pain. X-ray of the elbow does not show any fractures. For pain control, you can use the following [id number] medicines (if >12 yo): - Regular strength (325mg/tab) Tylenol (acetaminophen) 2 tabs every 4-6 hours as needed. Do not exceed 10 tablets in a 24 hour period. Avoid taking more than 3000 mg of Tylenol per day. This includes any other sources of acetaminophen you may take on a regular basis. - Regular strength (200 mg/tab) Advil (ibuprofen) 3 tabs every 6-8 hours as needed. Do not exceed a dose of 2400 mg per day. If this is a recent injury (<24 hrs), ice can be applied to the area of pain for the first 3 days to help decrease pain and inflammation. After that, you may apply heat to the area for comfort. Rest the arm in the sling for the next few days. If you are still having pain or tingling in the arm after 3-4 days, you should follow-up with the orthopedic surgeon for further evaluation. Call for an appointment. Return to the Emergency Department if your current symptoms worsen including severe worsening pain, swelling in the arm or elbow, or worsening numbness or tingling of the arm. Problem Qualifiers Primary Impression: Left elbow contusion Encounter type: initial encounter Qualified Codes: S50.02XA - Contusion of left elbow, initial encounter
== END 2018-01-31 20:40 | disposition home or self-care (01) ==
LOC: C.EDB 18:26 → C.EDD 20:40
DX: S50.02XA Contusion of left elbow, initial encounter (principal); W01.198A Fall on same level from slipping, tripping and stumbling with subsequent striking against other object, initial encounter; M79.2 Neuralgia and neuritis, unspecified; J45.909 Unspecified asthma, uncomplicated; Z91.018 Allergy to other foods; Z91.048 Other nonmedicinal substance allergy status

== ENCOUNTER → 2018-03-09 | Outpatient (CLI) | payer OTHER | END | disposition home or self-care (01) | LOC: C.LAB1850 15:05 | PROVIDERS: ATTEND Obstetrics & Gynecology | DX: Z32.00 Encounter for pregnancy test, result unknown (principal) ==

== ENCOUNTER 2018-03-13 17:44 | Emergency (ER) | payer OTHER ==
[~2018-03-13] VITALS: Ht 160 cm; Wt 45.9 kg
[2018-03-13 17:49] VITALS: TEMP 37; Ht 160 cm; Wt 45.9 kg
[2018-03-13 18:40] LABS: BASO % 0.5 %; BASO ABS # 0.03 K/uL (0-0.2); EOS % 3.4 %; EOS ABS # 0.22 K/uL (0-0.5); HEMATOCRIT 32.5 % (37-47); IG# 0.02 K/uL (0.00-0.02); LYMPH % 36.8 %; LYMPH ABS # 2.36 K/uL (1.2-3.4); MEAN CELL VOLUME 83.8 fL (80-100); MEAN CORPUSCULAR HEMOGLOBIN 28.4 pg (25-34); MEAN CORPUSCULAR HGB CONC 33.8 g/dl (32-36); MEAN PLATELET VOLUME 11.9 fL (7.4-10.4); MONO % 5.3 %; MONO ABS # 0.34 K/uL (0.11-0.59); NEUT % 53.7 %; NEUT ABS # 3.44 K/uL (1.4-6.5); PLATELET COUNT 162 K/uL (130-400); RED CELL DISTRIBUTION WIDTH CV 13.3 % (11.5-14.5); RED CELL DISTRIBUTION WIDTH SD 40.5 fL (36.4-46.3); WHITE BLOOD COUNT 6.41 K/uL (4.8-10.8)
[2018-03-13 18:58] LABS: ALBUMIN 3.5 gm/dl (3.4-5.0); ALT/SGPT 19 U/L (12-78); AST/SGOT 11 U/L (15-37); BLOOD UREA NITROGEN 17 mg/dl (7-18); CALCIUM 9.2 mg/dl (8.5-10.1); CARBON DIOXIDE 26 mmol/L (21-32); CREATININE 0.75 mg/dl (0.60-1.20); GLUCOSE 109 mg/dl (70-99); LIPASE 156 U/L (73-393); POTASSIUM 3.6 mmol/L (3.5-5.1); SODIUM 138 mmol/L (136-145)
[2018-03-13 19:01] LABS: ALKALINE PHOSPHATASE 41 U/L (45-117); TOTAL PROTEIN 7.5 gm/dl (6.4-8.2)
--- NOTE | 2018-03-13 19:21 | DIAGNOSTIC IMAGING REPORT ---
PA CHEST WITH ABDOMINAL SERIES CLINICAL HISTORY: Generalized abdominal pain. FINDINGS: A PA chest radiograph is compared to study dated 01/29/2018. The cardiomediastinal silhouette is unremarkable. The lungs and pleural spaces are clear. No pneumothorax is seen. The bony thorax is grossly intact. Supine and erect abdominal radiographs are correlated with abdominal CT dated 02/02/2015. There is a nonobstructed abdominal bowel gas pattern. Moderate fecal retention is noted in the right colon. No evidence of intraperitoneal free air is seen. There are no abnormal abdominal calcifications. The lumbosacral spine and bony pelvis appear intact. IMPRESSION: 1. No active disease in the chest. 2. Nonobstructed abdominal bowel gas pattern. Electronically signed by: Elier Collins M.D. 03/13/2018 7:19 PM Dictated Date/Time: 03/13/2018 7:18 PM
[2018-03-13 21:40] VITALS: BP 90/60; PULSE 68; O2SAT 99
--- NOTE | 2018-03-13 21:44 | DIAGNOSTIC IMAGING REPORT ---
ULTRASOUND OF THE PELVIS CLINICAL HISTORY: Pelvic pain. COMPARISON STUDY: Pelvic ultrasound dated 03/18/2017. TECHNIQUE: Real-time, grayscale, and color flow sonography of the pelvis is performed both transabdominally and endovaginally. Images are reviewed in the transverse and longitudinal planes. FINDINGS: Uterus: The uterus is normal in size and echotexture, measuring 6.6 x 4.0 x 5.4 cm. Trace fluid is noted in the endocervical canal. Endometrium: The endometrium appears mildly thickened and heterogeneous, measuring up to 1.4 cm. No internal flow is shown on color imaging. Ovaries: The ovaries are normal in size and morphology. The right ovary measures 3.1 x 2.4 x 2.6 cm and the left ovary measures 1.8 x 1.1 x 2.1 cm. There are bilateral ovarian follicles. A 1.6 cm complex/hemorrhagic follicle is noted on the right. Normal Doppler waveforms are shown within both ovaries. Pelvis: There is trace free fluid in the cul-de-sac. No concerning adnexal lesion is seen. IMPRESSION: 1. No acute sonographic abdomen is identified in the pelvis. 2. Trace free fluid in the cul-de-sac is likely within physiologic limits. 3. The endometrial stripe appears thickened measuring up to 1.4 cm. This is likely related to the phase of the patient's cycle. Electronically signed by: Elier Collins M.D. 03/13/2018 9:43 PM Dictated Date/Time: 03/13/2018 9:41 PM
--- NOTE | 2018-03-14 00:23 | EMERGENCY ROOM VISIT NOTE ---
History First contact with patient: 17:56 Chief Complaint: GI ASSESSMENT Stated Complaint: CRAMPING X3 WKS, BLOATED, NAUSEA, SOB, DIZZY Nursing Triage Summary: pt reports abd pain started 3 weeks ago went to pcp and obgyn told she did not have bladder infection. came to ed because sx are not getting better now has cramping. has n/v started 3 weeks ago more frequent this week History of Present Illness The patient is a 27 year old female who presents to the Emergency Room with complaints of abdominal cramping for 3 weeks, bloating, nausea and 3 pound weight gain. The patient reports that she was seen by her SENIOR RESIDENT CARE DIRECTOR earlier this week and had negative blood work for . The patient has had occasional episodes of vomiting. She is concerned that she may have another ovarian cyst. She reports increased urinary frequency without hematuria. She denies any vaginal drainage. Last menstruation was 02/20/18, and was later than usual. She has also been spotting ever since. Patient has OB history of A1. The patient reports that she also has had some recent constipation. She has not taken any OTC stool softeners to see if that helps her discomfort. She denies any pain radiating into the back or chest area. She denies any recent infections. She rates her discomfort a 2 out of 10. Review of Systems HEENT: Denies dizziness, visual problems, hearing loss, tinnitus. Denies difficulty swallowing or oral lesions. PULMONARY: Denies cough, shortness of breath, sputum production or hemoptysis. CARDIOVASCULAR: Denies chest pain, palpitations, dyspnea on exertion, orthopnea or peripheral edema. GASTROINTESTINAL: See HPI. GENITOURINARY: Denies dysuria, hematuria or urgency, although she has had increased frequency. NEUROLOGIC: Denies history of epilepsy, CVA, TIA or chronic headaches. MUSCULOSKELETAL: Denies history of joint tenderness/swelling. SKIN: Denies rashes or lesions. PSYCHIATRIC: Denies history of depression or mental illness. ENDOCRINE: Denies history of diabetes or thyroid disorders. Past Medical/Surgical History Medical Problems: (1) Abdominal pain (2) Abdominal pain (3) Abdominal pain (4) Abdominal pain (5) Abdominal pain (6) Abdominal pain (7) Anemia (8) Asthma (9) Asthma exacerbation (10) Asthma exacerbation (11) Asthma exacerbation (12) Asthma exacerbation (13) Bronchitis (14) Bronchitis (15) Constipation (16) Constipation (17) Dehydration (18) Dental caries (19) Dyspnea (20) Dyspnea (21) Ear foreign body (22) Fever (23) Gastroenteritis (24) Gastroenteritis (25) Jaw pain (26) Left ear impacted cerumen (27) Leg pain, left (28) Medication reaction (29) Migraine (30) Migraine (31) Miscarriage (32) Nausea (33) Normal labor (34) Ovarian cyst (35) Pelvic pain (36) Pelvic pain (37) Pelvic pain in female (38) Pelvic pain in female (39) PID (pelvic inflammatory disease) (40) PID (pelvic inflammatory disease) (41) Removal of ovarian cyst (42) Right lower quadrant pain (43) Third trimester (44) URI (upper respiratory infection) (45) Vaginal delivery Surgical Problems: (1) H/O adenoidectomy (2) H/O wisdom tooth extraction (3) History of laparoscopic appendectomy (4) Hx of appendectomy (5) Hx of tonsillectomy (6) Tonsillectomy Family History Diabetes mellitus Kidney stones Social History Smoking Status: Never Smoker Alcohol Use: occasionally Drug Use: none Marital Status: Housing Status: lives with family Occupation Status: unemployed Current/Historical Medications Scheduled Ascorbic Acid (Vitamin C), 1 TAB PO DAILY Ferrous Sulfate (Iron), 325 MG PO DAILY Fish Oil (Minong-3), 1 CAP PO DAILY Multivitamin (Multivitamin), 1 TAB PO DAILY Oyster Shell (Calcium), 1 TAB PO DAILY Scheduled PRN Albuterol Hfa (Ventolin Hfa), 2-4 PUFFS INH Q6H PRN for SOB/Wheezing Physical Exam Vital Signs Date Time Temp Pulse Resp B/P (MAP) Pulse Ox O2 Delivery O2 Flow Rate FiO2 03/13/18 21:40 68 18 90/60 99 Room Air 03/13/18 19:40 75 18 99/57 94 Room Air 03/13/18 17:49 37.0 78 18 112/76 99 Room Air Physical Exam CONSTITUTIONAL: Healthy and well nourished. Alert and oriented X 3 with flat affect. Patient does not appear in any acute distress. HEENT: Normocephalic, atraumatic. Pupils equal, round and reactive. NECK: Full active range of motion without discomfort. RESPIRATORY: Clear to auscultation bilaterally with no wheezing, crackles, rhonchi or stridor. CARDIOVASCULAR: Regular rate and rhythm with no murmurs, rubs or gallops. GASTROINTESTINAL: Bowel sounds present in all quadrants. Patient has generalized suprapubic and right sided abdominal tenderness to palpation. Negative McBurney's point tenderness. Negative Rovsing sign, negative heel tap. No rigidity, guarding or rebound. Negative CVA tenderness. MUSCULOSKELETAL: Full range of motion of all joints without discomfort. INTEGUMENTARY: No rash or other significant dermatologic conditions noted. HEMATOLOGIC: No ecchymosis or petechiae noted. NEUROLOGIC: No focal neurologic deficits noted. Medical Decision & Procedures ER Provider Diagnostic Interpretation: My interpretation of an abdomen obstruction series does not show any obstructive pattern or free air. The patient does have a moderate amount of stool within the descending colon and hepatic flexure. Radiologist report is as follows: PA CHEST WITH ABDOMINAL SERIES CLINICAL HISTORY: Generalized abdominal pain. FINDINGS: A PA chest radiograph is compared to study dated 01/29/2018. The cardiomediastinal silhouette is unremarkable. The lungs and pleural spaces are clear. No pneumothorax is seen. The bony thorax is grossly intact. Supine and erect abdominal radiographs are correlated with abdominal CT dated 02/02/2015. There is a nonobstructed abdominal bowel gas pattern. Moderate fecal retention is noted in the right colon. No evidence of intraperitoneal free air is seen. There are no abnormal abdominal calcifications. The lumbosacral spine and bony pelvis appear intact. IMPRESSION: 1. No active disease in the chest. 2. Nonobstructed abdominal bowel gas pattern. Pelvic ultrasound does not show any ovarian cysts or evidence for torsion. Radiologist report is as follows: ULTRASOUND OF THE PELVIS CLINICAL HISTORY: Pelvic pain. COMPARISON STUDY: Pelvic ultrasound dated 03/18/2017. TECHNIQUE: Real-time, grayscale, and color flow sonography of the pelvis is performed both transabdominally and endovaginally. Images are reviewed in the transverse and longitudinal planes. FINDINGS: Uterus: The uterus is normal in size and echotexture, measuring 6.6 x 4.0 x 5.4 cm. Trace fluid is noted in the endocervical canal. Endometrium: The endometrium appears mildly thickened and heterogeneous, measuring up to 1.4 cm. No internal flow is shown on color imaging. Ovaries: The ovaries are normal in size and morphology. The right ovary measures 3.1 x 2.4 x 2.6 cm and the left ovary measures 1.8 x 1.1 x 2.1 cm. There are bilateral ovarian follicles. A 1.6 cm complex/hemorrhagic follicle is noted on the right. Normal Doppler waveforms are shown within both ovaries. Pelvis: There is trace free fluid in the cul-de-sac. No concerning adnexal lesion is seen. IMPRESSION: 1. No acute sonographic abdomen is identified in the pelvis. 2. Trace free fluid in the cul-de-sac is likely within physiologic limits. 3. The endometrial stripe appears thickened measuring up to 1.4 cm. This is likely related to the phase of the patient's cycle. Laboratory Results 03/13/18 18:30 Red Blood Count 3.88, Mean Corpuscular Volume 83.8, Mean Corpuscular Hemoglobin 28.4, Mean Corpuscular Hemoglobin Concent 33.8, Mean Platelet Volume 11.9, Neutrophils (%) (Auto) 53.7, Lymphocytes (%) (Auto) 36.8, Monocytes (%) (Auto) 5.3, Eosinophils (%) (Auto) 3.4, Basophils (%) (Auto) 0.5, Neutrophils # (Auto) 3.44, Lymphocytes # (Auto) 2.36, Monocytes # (Auto) 0.34, Eosinophils # (Auto) 0.22, Basophils # (Auto) 0.03 03/13/18 18:30 Test 03/13/18 18:30 03/13/18 18:35 White Blood Count 6.41 K/uL (4.8-10.8) Red Blood Count 3.88 M/uL (4.2-5.4) Hemoglobin 11.0 g/dL (12.0-16.0) Hematocrit 32.5 % (37-47) Mean Corpuscular Volume 83.8 fL (80-100) Mean Corpuscular Hemoglobin 28.4 pg (25-34) Mean Corpuscular Hemoglobin Concent 33.8 g/dl (32-36) Platelet Count 162 K/uL (130-400) Mean Platelet Volume 11.9 fL (7.4-10.4) Neutrophils (%) (Auto) 53.7 % Lymphocytes (%) (Auto) 36.8 % Monocytes (%) (Auto) 5.3 % Eosinophils (%) (Auto) 3.4 % Basophils (%) (Auto) 0.5 % Neutrophils # (Auto) 3.44 K/uL (1.4-6.5) Lymphocytes # (Auto) 2.36 K/uL (1.2-3.4) Monocytes # (Auto) 0.34 K/uL (0.11-0.59) Eosinophils # (Auto) 0.22 K/uL (0-0.5) Basophils # (Auto) 0.03 K/uL (0-0.2) RDW Standard Deviation 40.5 fL (36.4-46.3) RDW Coefficient of Variation 13.3 % (11.5-14.5) Immature Granulocyte % (Auto) 0.3 % Immature Granulocyte # (Auto) 0.02 K/uL (0.00-0.02) Anion Gap 4.0 mmol/L (3-11) Est Creatinine Clear Calc Drug Dose 80.9 ml/min Estimated GFR () 125.7 Estimated GFR (Non- 108.5 BUN/Creatinine Ratio 22.8 (10-20) Calcium Level 9.2 mg/dl (8.5-10.1) Total Bilirubin 0.2 mg/dl (0.2-1) Direct Bilirubin < 0.1 mg/dl (0-0.2) Aspartate Amino Transf (AST/SGOT) 11 U/L (15-37) Alanine Aminotransferase (ALT/SGPT) 19 U/L (12-78) Alkaline Phosphatase 41 U/L (45-117) Total Protein 7.5 gm/dl (6.4-8.2) Albumin 3.5 gm/dl (3.4-5.0) Lipase 156 U/L (73-393) Urine Color YELLOW Urine Appearance CLEAR (CLEAR) Urine pH 5.5 (4.5-7.5) Urine Specific [place] 1.027 (1.000-1.030) Urine Protein NEG (NEG) Urine Glucose (UA) NEG (NEG) Urine Ketones NEG (NEG) Urine Occult Blood NEG (NEG) Urine Nitrite NEG (NEG) Urine Bilirubin NEG (NEG) Urine Urobilinogen NEG (NEG) Urine Leukocyte Esterase TRACE (NEG) Urine WBC (Auto) 5-10 /hpf (0-5) Urine RBC (Auto) 0-4 /hpf (0-4) Urine Hyaline Casts (Auto) 1-5 /lpf (0-5) Urine Epithelial Cells (Auto) >30 /lpf (0-5) Urine Bacteria (Auto) NEG (NEG) Urine Test NEG (NEG) Urine Opiates Screen NEG (NEG) Urine Methadone, Qualitative NEG (NEG) Urine Barbiturates NEG (NEG) Urine Phencyclidine (PCP) Level NEG (NEG) Ur Amphetamine/Methamphetamine NEG (NEG) MDMA (Ecstasy) Screen NEG (NEG) Urine Benzodiazepines Screen NEG (NEG) Urine Cocaine Metabolite NEG (NEG) Urine Marijuana (THC) NEG (NEG) The above labs were reviewed and were grossly normal. Urinalysis is not consistent with infection. Urine was negative, and urine drug screen was also negative. LFTs, lipase, CBC and partial renal profile were grossly normal. ED Course Patient history and physical exam were performed. Nurse's notes were reviewed. Vital signs were reviewed and were normal. IV access was established, and labs were drawn. The patient refused any analgesics or antiemetics. Review of labs did not show any concerning findings. Urinalysis was normal with a negative urine test. X-rays of the abdomen shows a moderate fecal load within the right colon. Findings were discussed with the patient. With shared medical decision making, the patient requested an ultrasound to rule out ovarian cyst. I explained to the patient that she does have a prior history of ovarian cysts, however even if an ultrasound were to show a cyst, it would not really change her management at this point. She is hemodynamically stable and not tachycardic. The patient still demanded that an ultrasound be performed. Ultrasound studies were performed and were grossly normal. Because the patient's abdominal pain could possibly be caused by her constipation, I did suggest taking a museum citrate to purge the bowel. She was encouraged to follow-up with her PCP and SENIOR RESIDENT CARE DIRECTOR for further reevaluation. The patient voiced understanding of all discharge instructions, was happy with plan of care, and denied any significant discomfort at the time of discharge. Medical Decision Patient presents with primary complaint of abdominal discomfort, bloating, nausea and vomiting. Her workup today is not suggestive of bowel obstruction, pancreatitis, hepatitis, UTI, , ovarian torsion/cyst or other surgical etiologies. The patient is afebrile and does not have any leukocytosis. She is not anemic. Review of medical records shows that the patient has a history of chronic abdominal discomfort. The patient is status post appendectomy. Other GI etiologies were considered. The patient reports that she has seen a receiving coordinator in the past who recommended that she have an upper and lower endoscopy. The patient has not done so. Medication Reconcilliation Current Medication List: was personally reviewed by me Blood Pressure Screening Patient's blood pressure: Normal blood pressure Impression Primary Impression: Diffuse abdominal pain Additional Impression: Constipation Departure Information Referrals Anant Valiente III, M.D. (PCP) Patient Instructions My [facility] Problem Qualifiers Additional Impression: Constipation Constipation type: unspecified constipation type Qualified Codes: K59.00 - Constipation, unspecified
== END 2018-03-13 22:10 | disposition home or self-care (01) ==
LOC: C.EDB 17:47 → C.EDC 22:10
DX: R10.9 Unspecified abdominal pain (principal); K59.00 Constipation, unspecified; J45.909 Unspecified asthma, uncomplicated; Z87.59 Personal history of other complications of pregnancy, childbirth and the puerperium; Z98.818 Other dental procedure status; Z90.89 Acquired absence of other organs; Z83.3 Family history of diabetes mellitus; Z84.1 Family history of disorders of kidney and ureter

== ENCOUNTER 2021-10-05 09:33 | Inpatient (IN) ==
[2021-10-05] MEDS ORDERED: LACTATED RINGER'S 1,000 ML IV PRN (09:51)
[2021-10-05] MEDS ORDERED: OXYTOCIN 30 UNITS/500 ML BAG IV PRN ×3 (09:51→18:32)
--- NOTE | 2021-10-05 10:06 | History & Physical Report ---
Date of Service October 05, 2021 Assessment & Plan (1) Encounter for induction of labor: Plan: 31 year old coming in for active labor management at 39 weeks and 6 days. -A+, GBS -, Rubella Immune -Oxytocin and LR started. -Anesthesia consulted for labor pains. -Will continue to monitor heart monitoring and labor progress. History of Present Illness Primary Care Provider: Anant Valiente MD 39 weeks 6 days confirmed via LMP. Here for evaluation of possible labor. Contractions have been getting stronger since 0500 this morning. No complications with this . Has been attending OB appointments regularly. Currently taking vitamin. Contractions: Evenly spaced Fluid or Blood loss: None Movement: Active Labs: - A+ - Antibody screen negative - Rubella Immune - RPR: Nonreactive - Gonorrhea: Not detected - Chlamydia: Not detected - HIV: Negative - HbSAg: Negative - GBS Negative - Glucose tolerance: 97 Allergies Allergy/AdvReac Type Severity Reaction Status Date / Time pollen extracts Allergy Intermediate RUNNY Verified 10/05/21 08:58 NOSE, CONGESTION orange Allergy Mild SWELLING Verified 10/05/21 08:58 Home Medications Medication Instructions Recorded Confirmed Type vits 114-iron asparto gly 1 tab PO HS 09/29/19 10/05/21 History 20 mg iron-folate no.1 1 mg tablet (Prenate Elite (iron asparto glycinate)) albuterol sulfate 90 mcg/actuation 2 inha INH Q6H PRN #1 inhaler 08/14/21 10/05/21 Rx aerosol inhaler Patient History Medical History Abdominal pain Abnormal uterine bleeding (AUB) Encounter for preconception consultation GERD (gastroesophageal reflux disease) Ovarian cyst Weight loss Surgical History H/O adenoidectomy H/O wisdom tooth extraction History of laparoscopic appendectomy Hx of tonsillectomy Family History Other Diabetes Hypertension Denies family history of Ovarian cancer Prostate cancer Breast cancer Colorectal cancer Cancer Social History Smoking Status: Never smoker Second Hand Exposure: No; Hx Alcohol Use: No Hx Substance Use: No Preferred Language: Arabic Communication Ability: Effective 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 Second full term delivered at 39 weeks 6 days, placenta previa, otherwise no complications. Third full term delivered at 39 weeks and 5 days, no complications. Review of Systems All systems reviewed & are unremarkable except as noted in HPI & below Physical Exam Physical Exam: General: Alert, oriented. No acute distress. Cardiac: Regular rate and rhythm, no murmurs/rubs/gallops. Respiratory: Clear to auscultation bilaterally a/p, no wheezes/rales/rhonchi. No increased work of breathing. Symmetrical chest rise. No respiratory distress. Pelvic: Dilation 5cm; Effacement -2; Station [address] Mahmood Lower Extremities: No lower extremity edema or swelling. No deep calf pain. Dee's negative bilaterally Baseline: 140 Variability: moderate Accelerations: Present Decelerations: Not present Genitourinary: OB Exam Abdomen: + vertex, + estimated weight (7-8 pounds) and + irregular contractions OB Exam Monitor Tracing: + external FHT monitor used, + external uterine monitor used, + category I and + normal FHT variability Supervising Physician Co-Signing Physician Notes Resident Physician Supervision Note: I interviewed and examined the patient. Discussed with Dr. Owens and agree with findings and plan as documented in the note. Any exceptions or clarifications are listed here: [None] Documented By: Gilda Nicholson MD, FACOG Resident Activity Tracking Resident Involvement: Resident Care Provided Care Provided: OB Delivery
[2021-10-05 10:39] LABS: Hemoglobin 9.7 g/dL (12.0-16.0); Mean Corpuscular Hemoglobin 25.1 pg (25-34); Mean Corpuscular Hgb Conc 31.3 g/dL (32-36); Mean Corpuscular Volume 80.3 fL (80-100); Mean Platelet Volume 11.6 fL (7.4-10.4); Platelet Count 224 K/uL (130-400); RDW Coefficient of Variation 14.7 % (11.5-14.5); RDW Standard Deviation 42.9 fL (36.4-46.3); Red Blood Count 3.86 M/uL (4.2-5.4); White Blood Count 9.26 K/uL (4.8-10.8)
[2021-10-05] MEDS ORDERED: LIDOCAINE 1% LOCAL 20 ML VIAL ONE ×2 (18:07→18:15)
[2021-10-05] MEDS ORDERED: ALBUTEROL HFA 8 GM INHALER INH PRN (18:30)
[2021-10-05] MEDS ORDERED: SUPERCREAM 0.870% 15 GM JAR EXT PRN (18:32)
[2021-10-05] MEDS ORDERED: ACETAMINOPHEN 325 MG TAB PO PRN (18:32)
[2021-10-05] MEDS ORDERED: HYDROCORTISONE ACETATE 25 MG SUPP PR PRN (18:32)
[2021-10-05] MEDS ORDERED: DIPHTHERIA/TETANUS/PERTUSSIS 0.5 ML SYR/VIAL IM ONE (18:32)
[2021-10-05] MEDS ORDERED: oxyCODONE/ACETAMINOPHEN 5mg/325mg TAB PO PRN (18:32)
[2021-10-05] MEDS ORDERED: BENZOCAINE 20% AER SPR 82.5 GM CAN EXT PRN (18:32)
--- NOTE | 2021-10-05 19:03 | Delivery Summary ---
Vaginal Delivery Summary Date of Service October 05, 2021 Vaginal Delivery Summary and 1st Degree LAC Patient is a 31-year-old multiparous female who presented at 39-6/7 weeks with regular contractions. She progressed to 7 cm dilated and requested membranes to be ruptured. Membranes were ruptured for clear fluid. She progressed to an anterior lip with a strong urge to push. With gentle pushing the anterior lip was able to be reduced. She then pushed effectively over intact perineum for delivery of a viable female . A loose nuchal cord was reduced at the time of delivery and prior to delivering the rest of the infant. After the head was delivered the infant shoulders delivered easily. She was placed on the mother's abdomen for further attention and drying. There was vigorous crying and the infant was moving all 4 limbs. The placenta was then expressed intact with a three-vessel cord. Cord blood was obtained prior to delivering the placenta. Using 1% lidocaine the first-degree perineal laceration was anesthetized and then repaired with 3-0 chromic in the usual fashion. This was an unmedicated . Mother and were doing well after delivery. Estimated blood loss 200 cc. bleeding was controlled with dilute Pitocin. [facility] [place] Delivery Type Details: and 1st Degree LAC
[2021-10-05] MEDS: DOCUSATE SODIUM 100 MG CAP PO SCH (20:38)
[2021-10-05] MEDS: IBUPROFEN 600 MG TAB PO PRN (23:51)
[2021-10-06] MEDS: IBUPROFEN 600 MG TAB PO PRN ×2 (05:06→16:34)
--- NOTE | 2021-10-06 06:19 | Obstetrical Progress Note ---
Date of Service <Vipul Owens DO - Last Filed: 10/06/21 07:05> October 06, 2021 Assessment & Plan <Vipul Owens DO - Last Filed: 10/06/21 07:05> (1) Encounter for care and examination after delivery: 31 yo post op day 1 from vaginal delivery, doing well. -Continue routine post care. - vital signs reviewed and WNL. (Tmax 36.8) -Blood type A-, GBS -, Rubella Immune -Encourage ambulation, monitor and control pain with Motrin, tylenol PRN, resume regular diet, monitor lochia. -encourage breast feeding. Breast pump - already has. -hemoglobin 8.3 <Gilda Nicholson MD, FACOG - Last Filed: 10/06/21 07:24> (1) Encounter for care and examination after delivery: Subjective <Vipul Owens DO - Last Filed: 10/06/21 07:05> Ambulation: ambulating normally Voiding: no voiding problems Passing Gas:: Yes Diet Tolerance:: regular diet Lochia:: Small Feeding Type:: breast feeding Current Pain Level(1-10): 0 Review of Systems Denies fever, chills, sweats Denies shortness of breath, difficulty breathing, chest pain, palpitations, chest pressure. Denies breast pain. Mild dysuria Denies headache or changes in vision Physical Exam <Vipul Owens DO - Last Filed: 10/06/21 07:05> General: Alert, oriented. No acute distress. Cardiac: Regular rate and rhythm, no murmurs/rubs/gallops. Respiratory: Clear to auscultation bilaterally a/p, no wheezes/rales/rhonchi. No increased work of breathing. Symmetrical chest rise. No respiratory distress. Abdomen: Soft, nontender, nondistended. Bowel sounds present. Uterus: Uterine fundus firm, palpable at umbilicus. Lower Extremities: No lower extremity edema or swelling. No deep calf pain. Dee's negative bilaterally Results & Data ([facility]) <Vipul Owens DO - Last Filed: 10/06/21 07:05> Vital Signs (Past 12 Hours) Vital Signs Temp Pulse Pulse Resp BP BP Pulse Ox 10/06/21 03:15 36.8 C 75 16 107/70 98 10/05/21 23:50 36.8 C 71 16 113/71 99 10/05/21 21:05 36.7 C 69 18 103/68 98 10/05/21 20:26 71 112/68 10/05/21 20:25 36.8 C 18 10/05/21 20:11 78 104/61 10/05/21 19:56 73 110/69 10/05/21 19:55 18 10/05/21 19:41 80 114/72 10/05/21 19:26 114/75 10/05/21 19:25 18 10/05/21 19:11 71 110/71 10/05/21 19:10 18 10/05/21 18:56 73 109/70 10/05/21 18:41 69 121/76 10/05/21 18:26 84 117/72 <Gilda Nicholson MD, FACOG - Last Filed: 10/06/21 07:24> Co-Signing Physician Notes Resident Physician Supervision Note: I was present with Dr. Owens during the history and exam. I discussed the case with the resident and agree with the findings and plan as documented in the note. Any exceptions or clarifications are listed here: [None] Documented By: Gilda Nicholson MD, FACOG Resident Activity Tracking <Vipul Owens DO - Last Filed: 10/06/21 07:05> Resident Involvement: Resident Care Provided Care Provided: OB Delivery
[2021-10-06 06:38] LABS: Hematocrit (blood only) 25.7 % (37-47); Hemoglobin 8.3 g/dL (12.0-16.0); Mean Corpuscular Hemoglobin 25.6 pg (25-34); Mean Corpuscular Hgb Conc 32.3 g/dL (32-36); Mean Corpuscular Volume 79.3 fL (80-100); Platelet Count 184 K/uL (130-400); RDW Coefficient of Variation 14.7 % (11.5-14.5); RDW Standard Deviation 42.1 fL (36.4-46.3); Red Blood Count 3.24 M/uL (4.2-5.4)
[2021-10-06] MEDS: DOCUSATE SODIUM 100 MG CAP PO SCH ×2 (08:00→20:12)
[2021-10-06] MEDS: PRENATAL VITAMIN 1 TAB PO SCH (08:00)
[2021-10-06] MEDS ORDERED: bisacodyL 5 MG TABEC PO SCH (20:00)
[2021-10-07] MEDS ORDERED: bisacodyL 10 MG SUPP PR PRN
[2021-10-07] MEDS: IBUPROFEN 600 MG TAB PO PRN ×2 (06:30→14:42)
[2021-10-07 06:44] LABS: Hematocrit (blood only) 28.7 % (37-47); Hemoglobin 8.9 g/dL (12.0-16.0)
--- NOTE | 2021-10-07 08:07 | Obstetrical Progress Note ---
Date of Service October 07, 2021 Assessment & Plan (1) Encounter for care and examination after delivery: 31 yo post op day 2 from vaginal delivery, doing well. Stable for discharge Subjective Ambulation: ambulating normally Voiding: no voiding problems Passing Gas:: Yes Diet Tolerance:: regular diet Lochia:: Moderate Feeding Type:: breast feeding Physical Exam Constitutional WD/WN, vitals as above Respiratory normal respiratory effort; no respiratory distress and no labored breathing Gastrointestinal (Abdomen) Inspection/Auscultation: abdomen normal to inspection; abdomen not distended Percussion/Palpation: abdomen soft; abdomen nontender, no guarding and abdomen not rigid Genitourinary OB Exam Abdomen: + fundal height Fundus: + firm and + relation to umbilicus (Below); not tender or not boggy Results & Data ([facility]) Vital Signs (Past 12 Hours) Vital Signs Temp Pulse Resp BP 10/07/21 00:50 36.8 C 77 16 98/64 L
[2021-10-07] MEDS: DOCUSATE SODIUM 100 MG CAP PO SCH (08:47)
[2021-10-07] MEDS: PRENATAL VITAMIN 1 TAB PO SCH (08:47)
== END 2021-10-07 15:03 | disposition home or self-care (01) | DRG 807 ==
LOC: OPB 09:33 → 4S1 09:35 → 4S2 21:13